=== PATIENT | male | born 1990 | race Two or more races ===

== ENCOUNTER 2017-09-07 17:34 | Inpatient (IN) | payer MEDICAID ==
[~2017-09-07] VITALS: Ht 167.6 cm; Wt 80.0 kg
[~2017-09-07 17:34] MED LIST: BUSP5TAB3 PO; CARB-52 PO; HYDR-3686 PO; KEP500T PO; ONDA4TAB6 PO
[2017-09-07] MEDS ORDERED: LORazepam 2 mg/ml vial IV ONE (18:00)
[2017-09-07] MEDS ORDERED: levetiracetam 250mg tablet PO ONE (18:05)
[2017-09-07 18:18] LABS: BASOPHILS % (AUTO) 0.3 % (0-1); EOSINOPHILS # (AUTO) 0.1 X10'3 (0-0.9); EOSINOPHILS % (AUTO) 1.4 % (0-6); HEMOGLOBIN 14.6 g/dl (14.0-17.9); LYMPHOCYTES # (AUTO) 0.9 X10'3 (1.1-4.8); MEAN CORPUSCULAR HEMOGLOBIN 32.2 PG (27.0-31.0); MEAN CORPUSCULAR VOLUME 94.8 FL (78-98); MEAN PLATELET VOLUME 6.4 FL (7.4-10.4); MONOCYTES # (AUTO) 0.5 X10'3 (0-0.9); MONOCYTES % (AUTO) 4.6 % (2-12); NEUTROPHILS # (AUTO) 8.5 X10'3 (1.8-7.7); NEUTROPHILS % (AUTO) 84.7 % (42-75); PLATELET COUNT 249 X10'3 (140-440); RED BLOOD COUNT 4.54 X10'6 (4.70-6.10); RED CELL DISTRIBUTION WIDTH 13.4 % (11.5-14.5)
[2017-09-07 18:28] LABS: PARTIAL THROMBOPLASTIN TIME 27 SECONDS (22-32); PROTHROMBIN TIME 9.9 SECONDS (9.0-12.0)
[2017-09-07 18:32] LABS: ALANINE AMINOTRANSFERASE 45 U/L (12-78); ALBUMIN 4.2 G/DL (3.4-5.0); ALBUMIN/GLOBULIN RATIO 1.4 (1.1-1.5); ALKALINE PHOSPHATASE 72 IU/L (46-116); ANION GAP 11 (8-16); ASPARTATE AMINO TRANSFERASE 22 U/L (10-37); BILIRUBIN,TOTAL 0.4 MG/DL (0.1-1.0); BLOOD UREA NITROGEN 13 MG/DL (7-18); BUN/CREATININE RATIO 13.4 (5.4-32.0); CALCIUM 9.2 MG/DL (8.5-10.1); CHLORIDE 104 MMOL/L (99-107); CREATININE 0.97 MG/DL (0.60-1.10); GLUCOSE 124 MG/DL (70-104); POTASSIUM 4.3 MMOL/L (3.5-5.1); SODIUM 139 MMOL/L (135-145); TOTAL CARBON DIOXIDE 24.2 MMOL/L (24-32); TOTAL PROTEIN 7.3 G/DL (6.4-8.2); eGFR > 90 ML/MIN
[2017-09-07 18:39] LABS: CREATINE KINASE 372 U/L (39-308); ETHANOL < 0.010 GM/DL (0.0-0.010); MAGNESIUM 1.6 MG/DL (1.5-2.4); MYOGLOBIN 179 ng/ml (16-96)
[2017-09-07 18:39] LABS: CLARITY,URINE Clear (Clear); COLOR,URINE Yellow (Yellow); GLUCOSE, URINE Negative (Neg); KETONES,URINE 15 mg/dl (Neg); LEUKOCYTE ESTERASE ,URINE Negative (Neg); NITRITES, URINE Negative (Neg); OCCULT BLOOD,URINE Negative (Neg); PH,URINE 5.5 (4.8-8.0); PROTEIN,URINE Trace mg/dl (Neg)
[2017-09-07 18:41] LABS: UA COLLECTION TYPE NON-SPECIFIED
[2017-09-07 18:44] LABS: BACTERIA,URINE 1+ /HPF (Neg); MUCUS STRANDS FEW /LPF (Neg); RBC,URINE NONE SEEN /HPF (0-2); SQUAMOUS EPITHELIAL CELL,UR NONE SEEN /LPF (FEW); WBC,URINE NONE SEEN /HPF (0-4)
[2017-09-07 18:46] LABS: URINE AMPHETAMINE SCREEN NEGATIVE (Neg); URINE BARBITUATE SCREEN NEGATIVE (Neg); URINE BENZODIAZEPINES SCREEN NEGATIVE (Neg); URINE CANNABINOID SCREEN POSITIVE (Neg); URINE COCAINE SCREEN NEGATIVE (Neg); URINE METHADONE SCREEN NEGATIVE (Neg); URINE OPIATE SCREEN NEGATIVE (Neg); URINE PHENCYCLIDINE SCREEN NEGATIVE (Neg)
[2017-09-07] MEDS ORDERED: ondansetron/PF 4mg/2ml inj IV PRN (20:40)
[2017-09-07] MEDS ORDERED: diphenhydrAMINE 25mg capsule PO PRN (20:40)
[2017-09-07] MEDS ORDERED: morphine sulfate 8 MG/ML SYRINGE IV PRN ×2 (20:40)
[2017-09-07] MEDS ORDERED: acetaminophen 325mg tablet PO PRN ×2 (20:40)
[2017-09-07] MEDS ORDERED: magnesium hydroxide 30ml (MOM) UD suspension PO PRN (20:40)
[2017-09-07] MEDS ORDERED: bisacodyl 10mg suppository rectal RC PRN (20:40)
[2017-09-07] MEDS ORDERED: metoclopramide 5 mg/ml inj IV PRN (20:40)
[2017-09-07] MEDS ORDERED: acetaminophen 650mg rectal suppository RC PRN (20:40)
[2017-09-07] MEDS ORDERED: mag hydrox/Alum hydrox/simeth 30ml oral suspension PO PRN (20:40)
[2017-09-07] MEDS ORDERED: HYDROcodone/acetaminophen 5mg/325mg tablet PO PRN (20:40)
[2017-09-07] MEDS ORDERED: diphenhydrAMINE 50 mg/ml inj IV PRN (20:40)
[2017-09-07] MEDS ORDERED: HYDROcodone/acetaminophen 10/325mg tab PO PRN (20:40)
[2017-09-07] MEDS ORDERED: temazepam 15mg capsule PO PRN (21:00)
[2017-09-07 21:18] LABS: CARBAMAZEPINE (TEGRETOL) 1.9 UG/ML (4.0-12.0); PHOSPHORUS 3.1 MG/DL (2.3-4.5)
[2017-09-07] MEDS: busPIRone 5mg tablet PO SCH (22:32)
[2017-09-07] MEDS: normal saline 1000ml 1,000 ML IV SCH (22:33)
[2017-09-07] MEDS: carBAMazepine Ext. Release 200 MG TAB.ER.12H PO SCH (22:33)
[2017-09-07 23:43] VITALS: BP 130/65
[2017-09-08 05:55] LABS: BASOPHILS % (AUTO) 0.3 % (0-1); EOSINOPHILS % (AUTO) 0 % (0-6); HEMATOCRIT 40.1 % (42.0-52.0); HEMOGLOBIN 13.8 g/dl (14.0-17.9); LYMPHOCYTES # (AUTO) 1.7 X10'3 (1.1-4.8); LYMPHOCYTES % (AUTO) 18.8 % (21-51); MEAN CORPUSCULAR HEMOGLOBIN 32.3 PG (27.0-31.0); MEAN CORPUSCULAR HGB CONC 34.3 % (33.0-36.5); MEAN PLATELET VOLUME 6.5 FL (7.4-10.4); MONOCYTES # (AUTO) 0.8 X10'3 (0-0.9); MONOCYTES % (AUTO) 8.6 % (2-12); NEUTROPHILS # (AUTO) 6.4 X10'3 (1.8-7.7); NEUTROPHILS % (AUTO) 72.3 % (42-75); PLATELET COUNT 213 X10'3 (140-440); RED BLOOD COUNT 4.27 X10'6 (4.70-6.10); RED CELL DISTRIBUTION WIDTH 13.3 % (11.5-14.5); WHITE BLOOD COUNT 8.8 X10'3 (4.5-11.0)
[2017-09-08 06:45] LABS: ALANINE AMINOTRANSFERASE 43 U/L (12-78); ALBUMIN 3.7 G/DL (3.4-5.0); ALBUMIN/GLOBULIN RATIO 1.3 (1.1-1.5); ALKALINE PHOSPHATASE 66 IU/L (46-116); ANION GAP 11 (8-16); ASPARTATE AMINO TRANSFERASE 23 U/L (10-37); BILIRUBIN,TOTAL 0.6 MG/DL (0.1-1.0); BLOOD UREA NITROGEN 11 MG/DL (7-18); BUN/CREATININE RATIO 12.6 (5.4-32.0); CALCIUM 8.9 MG/DL (8.5-10.1); CHLORIDE 108 MMOL/L (99-107); CREATININE 0.87 MG/DL (0.60-1.10); GLUCOSE 93 MG/DL (70-104); POTASSIUM 3.7 MMOL/L (3.5-5.1); SODIUM 143 MMOL/L (135-145); TOTAL CARBON DIOXIDE 23.9 MMOL/L (24-32); TOTAL PROTEIN 6.6 G/DL (6.4-8.2); eGFR > 90 ML/MIN
[2017-09-08 07:12] VITALS: BP 116/59
[2017-09-08] MEDS: LORazepam 2 mg/ml vial IV SCH ×3 (08:00→15:24)
[2017-09-08] MEDS ORDERED: levetiracetam 250mg tablet PO SCH (08:00)
[2017-09-08] MEDS ORDERED: heparin, porcine 5000 units/ml vial SQ SCH (08:00)
[2017-09-08] MEDS ORDERED: pantoprazole 40 MG vial IV SCH (08:00)
[2017-09-08] MEDS ORDERED: docusate sod 100mg capsule PO SCH (08:00)
[2017-09-08] MEDS: busPIRone 5mg tablet PO SCH ×2 (08:09→13:05)
[2017-09-08] MEDS: carBAMazepine Ext. Release 200 MG TAB.ER.12H PO SCH (08:40)
[2017-09-08] MEDS: normal saline 1000ml 1,000 ML IV SCH ×2 (09:04→16:40)
[2017-09-08 11:59] VITALS: BP 116/53
== END 2017-09-08 17:50 | disposition home or self-care (01) | DRG 53 ==
LOC: ER 17:34 → ED HOLD 20:40 → EDBEDREQ 21:10 → MED 3N 22:00
PROVIDERS: ADMIT Family Medicine; ATTEND Internal Medicine
DX: G40.401 Other generalized epilepsy and epileptic syndromes, not intractable, with status epilepticus (principal); F31.9 Bipolar disorder, unspecified; F12.90 Cannabis use, unspecified, uncomplicated; G89.29 Other chronic pain; M54.9 Dorsalgia, unspecified; F14.90 Cocaine use, unspecified, uncomplicated; F15.90 Other stimulant use, unspecified, uncomplicated; Z91.19 Patient's noncompliance with other medical treatment and regimen; Z88.8 Allergy status to other drugs, medicaments and biological substances; Z79.899 Other long term (current) drug therapy; Z82.5 Family history of asthma and other chronic lower respiratory diseases; Z81.8 Family history of other mental and behavioral disorders
CPT/HCPCS: 36415; 70450; 80053; 80156; 80305; 80320; 81001; 82550; 83735; 83874; 83880; 84100; 85025; 85610; 85730; 87070; 96372; 96374; 96375; 99285; A6257; C9113; J1644; J2060; J2405; J7030

== ENCOUNTER 2017-09-23 11:46 | Emergency (ER) | payer MEDICAID ==
[~2017-09-23] VITALS: Ht 180.3 cm; Wt 86.0 kg
[2017-09-23 14:39] VITALS: BP 137/61
== END 2017-09-23 14:41 | disposition home or self-care (01) ==
LOC: ER 11:46
DX: R56.9 Unspecified convulsions (principal); J44.9 Chronic obstructive pulmonary disease, unspecified; G89.29 Other chronic pain; F12.10 Cannabis abuse, uncomplicated; F15.10 Other stimulant abuse, uncomplicated; F14.10 Cocaine abuse, uncomplicated; Z88.8 Allergy status to other drugs, medicaments and biological substances
CPT/HCPCS: 99284

== ENCOUNTER 2017-09-23 15:02 | Emergency (ER) | payer MEDICAID ==
[~2017-09-23] VITALS: Ht 175.3 cm; Wt 84.1 kg
[2017-09-23] MEDS ORDERED: levetiracetam inj 1,000 MG in normal saline 100ml IV soln 90 ML IV ONE (15:20)
[2017-09-23] MEDS ORDERED: normal saline 1000ml 1,000 ML IV ONE (15:35)
[2017-09-23 15:38] LABS: BASOPHILS % (AUTO) 0.3 % (0-1); EOSINOPHILS # (AUTO) 0.2 X10'3 (0-0.9); EOSINOPHILS % (AUTO) 1.5 % (0-6); HEMOGLOBIN 15.6 g/dl (14.0-17.9); LYMPHOCYTES % (AUTO) 20.8 % (21-51); MEAN CORPUSCULAR HEMOGLOBIN 31.8 PG (27.0-31.0); MEAN CORPUSCULAR HGB CONC 33.1 % (33.0-36.5); MEAN PLATELET VOLUME 6.4 FL (7.4-10.4); MONOCYTES % (AUTO) 9.8 % (2-12); NEUTROPHILS # (AUTO) 6.7 X10'3 (1.8-7.7); NEUTROPHILS % (AUTO) 67.6 % (42-75); PLATELET COUNT 292 X10'3 (140-440); RED CELL DISTRIBUTION WIDTH 12.9 % (11.5-14.5); WHITE BLOOD COUNT 9.8 X10'3 (4.5-11.0)
[2017-09-23] MEDS ORDERED: ondansetron/PF 4mg/2ml inj IV ONE (15:45)
[2017-09-23 16:07] LABS: ALANINE AMINOTRANSFERASE 47 U/L (12-78); ALBUMIN 4.4 G/DL (3.4-5.0); ALBUMIN/GLOBULIN RATIO 1.3 (1.1-1.5); ALKALINE PHOSPHATASE 95 IU/L (46-116); ANION GAP 19 (8-16); ASPARTATE AMINO TRANSFERASE 20 U/L (10-37); BILIRUBIN,TOTAL 0.4 MG/DL (0.1-1.0); BLOOD UREA NITROGEN 13 MG/DL (7-18); CALCIUM 9.6 MG/DL (8.5-10.1); CHLORIDE 103 MMOL/L (99-107); CREATINE KINASE 133 U/L (39-308); GLUCOSE 150 MG/DL (70-104); POTASSIUM 3.1 MMOL/L (3.5-5.1); SODIUM 140 MMOL/L (135-145); TOTAL CARBON DIOXIDE 18.1 MMOL/L (24-32); TOTAL PROTEIN 7.9 G/DL (6.4-8.2); eGFR 65 ML/MIN
[2017-09-23] MEDS ORDERED: potassium Cl 20 mEq SR tablet PO STA (16:22)
[2017-09-23] MEDS ORDERED: LORazepam 2 mg/ml vial IV ONE (16:25)
[2017-09-23 16:43] LABS: CLARITY,URINE CLEAR (Clear); COLOR,URINE YELLOW (Yellow); GLUCOSE, URINE NEGATIVE (Neg); KETONES,URINE TRACE mg/dl (Neg); LEUKOCYTE ESTERASE ,URINE NEGATIVE (Neg); NITRITES, URINE NEGATIVE (Neg); OCCULT BLOOD,URINE NEGATIVE (Neg); PH,URINE 8.5 (4.8-8.0); PROTEIN,URINE 100 mg/dl (Neg); UROBILINOGEN,URINE 0.2 E.U/dL (0.2-1.0)
[2017-09-23 16:48] LABS: UA COLLECTION TYPE URINAL
[2017-09-23 17:01] LABS: AMORPHOUS PHOSPHATES 1+; BACTERIA,URINE 2+ /HPF (Neg); RBC,URINE NONE SEEN /HPF (0-2); SQUAMOUS EPITHELIAL CELL,UR FEW /LPF (FEW); WBC,URINE NONE SEEN /HPF (0-4)
[2017-09-23] MEDS ORDERED: acetaminophen 325mg tablet PO ONE (17:05)
[2017-09-23] MEDS ORDERED: ketorolac trometh. 30mg/ml inj. IV ONE (17:05)
[2017-09-23 18:51] VITALS: BP 111/55
== END 2017-09-23 18:54 | disposition home or self-care (01) ==
LOC: ER 15:04
DX: G40.909 Epilepsy, unspecified, not intractable, without status epilepticus (principal); G89.29 Other chronic pain; F31.9 Bipolar disorder, unspecified; F12.10 Cannabis abuse, uncomplicated; F15.10 Other stimulant abuse, uncomplicated; F14.10 Cocaine abuse, uncomplicated; Z88.8 Allergy status to other drugs, medicaments and biological substances; Z79.899 Other long term (current) drug therapy
CPT/HCPCS: 36415; 80053; 81001; 82550; 85025; 96365; 96375; 99284; J1885; J1953; J2060; J2405; J7030

== ENCOUNTER 2017-12-20 16:57 | Emergency (ER) | payer MEDICAID ==
[~2017-12-20] VITALS: Ht 182.9 cm; Wt 81.8 kg
[~2017-12-20 16:57] MED LIST changes: +CARB200T2 PO
[2017-12-20] MEDS ORDERED: LORazepam 2 mg/ml vial IV ONE (17:00)
[2017-12-20] MEDS ORDERED: magnesium 2GM in 50ml NS 50 ML IV ONE (17:00)
[2017-12-20] MEDS ORDERED: normal saline 1000ML IV soln IVB ONE (17:00)
[2017-12-20] MEDS ORDERED: ondansetron/PF 4mg/2ml inj IV ONE ×2 (17:10→17:50)
[2017-12-20 17:23] LABS: BASOPHILS % (AUTO) 0.2 % (0-1); EOSINOPHILS % (AUTO) 0.3 % (0-6); HEMOGLOBIN 15.2 g/dl (14.0-17.9); LYMPHOCYTES # (AUTO) 1.6 X10'3 (1.1-4.8); LYMPHOCYTES % (AUTO) 12.3 % (21-51); MEAN CORPUSCULAR HEMOGLOBIN 31.7 PG (27.0-31.0); MEAN CORPUSCULAR HGB CONC 33.8 % (33.0-36.5); MEAN CORPUSCULAR VOLUME 93.8 FL (78-98); MEAN PLATELET VOLUME 6.6 FL (7.4-10.4); MONOCYTES # (AUTO) 0.7 X10'3 (0-0.9); MONOCYTES % (AUTO) 5.4 % (2-12); NEUTROPHILS # (AUTO) 10.7 X10'3 (1.8-7.7); NEUTROPHILS % (AUTO) 81.8 % (42-75); PLATELET COUNT 291 X10'3 (140-440)
[2017-12-20 17:42] LABS: ALANINE AMINOTRANSFERASE 65 U/L (12-78); ALBUMIN 4.1 G/DL (3.4-5.0); ALBUMIN/GLOBULIN RATIO 1.2 (1.1-1.5); ALKALINE PHOSPHATASE 96 IU/L (46-116); ANION GAP 16 (8-16); ASPARTATE AMINO TRANSFERASE 26 U/L (10-37); BILIRUBIN,TOTAL 0.4 MG/DL (0.1-1.0); BLOOD UREA NITROGEN 16 MG/DL (7-18); BUN/CREATININE RATIO 15.2 (5.4-32.0); CALCIUM 9.5 MG/DL (8.5-10.1); CHLORIDE 104 MMOL/L (99-107); CREATINE KINASE 118 U/L (39-308); CREATININE 1.05 MG/DL (0.60-1.10); GLUCOSE 138 MG/DL (70-104); SODIUM 141 MMOL/L (135-145); TOTAL CARBON DIOXIDE 21.2 MMOL/L (24-32); TOTAL PROTEIN 7.6 G/DL (6.4-8.2); eGFR 84 ML/MIN
[2017-12-20 18:21] LABS: CARBAMAZEPINE (TEGRETOL) 5.4 UG/ML (4.0-12.0)
[2017-12-20 19:11] LABS: CLARITY,URINE Clear (Clear); COLOR,URINE Yellow (Yellow); GLUCOSE, URINE Negative (Neg); KETONES,URINE Negative (Neg); LEUKOCYTE ESTERASE ,URINE Negative (Neg); NITRITES, URINE Negative (Neg); OCCULT BLOOD,URINE Negative (Neg); PH,URINE 5.5 (4.8-8.0); PROTEIN,URINE Negative (Neg); UROBILINOGEN,URINE 0.2 E.U/dL (0.2-1.0)
[2017-12-20] MEDS ORDERED: pantoprazole IV 80 MG in normal saline 100ml IV soln 100 ML IV ONE (19:15)
[2017-12-20] MEDS ORDERED: proCHLORperazine 10 MG/2 ml inj IV ONE (19:15)
[2017-12-20 19:19] LABS: URINE AMPHETAMINE SCREEN NEGATIVE (Neg); URINE BARBITUATE SCREEN NEGATIVE (Neg); URINE BENZODIAZEPINES SCREEN POSITIVE (Neg); URINE CANNABINOID SCREEN POSITIVE (Neg); URINE COCAINE SCREEN NEGATIVE (Neg); URINE METHADONE SCREEN NEGATIVE (Neg); URINE OPIATE SCREEN NEGATIVE (Neg); URINE PHENCYCLIDINE SCREEN NEGATIVE (Neg)
[2017-12-20 19:23] LABS: UA COLLECTION TYPE CLN CATCH MIDSTREAM
[2017-12-20 19:44] LABS: HEMATOCRIT 44.2 % (42.0-52.0); HEMOGLOBIN 14.8 g/dl (14.0-17.9); MEAN CORPUSCULAR HEMOGLOBIN 31.8 PG (27.0-31.0); MEAN CORPUSCULAR HGB CONC 33.5 % (33.0-36.5); MEAN PLATELET VOLUME 6.6 FL (7.4-10.4); PLATELET COUNT 256 X10'3 (140-440); RED BLOOD COUNT 4.66 X10'6 (4.70-6.10); RED CELL DISTRIBUTION WIDTH 14.1 % (11.5-14.5); WHITE BLOOD COUNT 14.2 X10'3 (4.5-11.0)
[2017-12-20 20:00] VITALS: BP 109/66
[2017-12-21] MEDS ORDERED: BUSP10TA3 PO (05:48)
[2017-12-21] MEDS ORDERED: DOCU-267 PO (05:48)
[2017-12-21] MEDS ORDERED: PERA2TAB PO (05:48)
[2017-12-21] MEDS ORDERED: MIRT15TA8 PO (05:49)
[2017-12-21] MEDS ORDERED: DIAZEPAM RC (05:49)
[2017-12-21] MEDS ORDERED: CARB-101 PO (05:49)
[2017-12-21] MEDS ORDERED: LAMO200T PO (05:49)
== END 2017-12-20 20:03 | disposition home or self-care (01) ==
LOC: ER 16:58
DX: G40.909 Epilepsy, unspecified, not intractable, without status epilepticus (principal); G89.29 Other chronic pain; F12.10 Cannabis abuse, uncomplicated; F15.10 Other stimulant abuse, uncomplicated; F14.10 Cocaine abuse, uncomplicated; Z88.8 Allergy status to other drugs, medicaments and biological substances; Z79.899 Other long term (current) drug therapy
CPT/HCPCS: 36415; 80053; 80156; 80305; 81003; 82542; 82550; 82948; 85025; 85027; 96365; 96375; 96376; 99284; C9113; J0780; J2060; J2405; J3475; J7030

== ENCOUNTER 2017-12-21 02:23 | Inpatient (IN) | payer MEDICAID ==
[~2017-12-21] VITALS: Ht 182.9 cm; Wt 68.0 kg
[2017-12-21] MEDS ORDERED: LORazepam 2 mg/ml vial IV ONE ×2 (02:40→07:20)
[2017-12-21] MEDS ORDERED: levetiracetam 100mg/ml inj IV ONE (03:26)
[2017-12-21] MEDS ORDERED: normal saline 1000ML IV soln IVB ONE (03:30)
[2017-12-21] MEDS ORDERED: CefTRIAXone/D5W-Rocephin 1gm 50 ML IV ONE (03:30)
[2017-12-21 03:54] LABS: BASOPHILS % (AUTO) 0.2 % (0-1); EOSINOPHILS % (AUTO) 0 % (0-6); HEMATOCRIT 39.6 % (42.0-52.0); HEMOGLOBIN 13.7 g/dl (14.0-17.9); LYMPHOCYTES # (AUTO) 0.9 X10'3 (1.1-4.8); LYMPHOCYTES % (AUTO) 8.4 % (21-51); MEAN CORPUSCULAR HEMOGLOBIN 32.4 PG (27.0-31.0); MEAN CORPUSCULAR HGB CONC 34.7 % (33.0-36.5); MEAN CORPUSCULAR VOLUME 93.4 FL (78-98); MEAN PLATELET VOLUME 6.4 FL (7.4-10.4); MONOCYTES # (AUTO) 0.5 X10'3 (0-0.9); MONOCYTES % (AUTO) 4.8 % (2-12); NEUTROPHILS # (AUTO) 8.9 X10'3 (1.8-7.7); NEUTROPHILS % (AUTO) 86.6 % (42-75); PLATELET COUNT 248 X10'3 (140-440); RED BLOOD COUNT 4.24 X10'6 (4.70-6.10); RED CELL DISTRIBUTION WIDTH 14.1 % (11.5-14.5); WHITE BLOOD COUNT 10.3 X10'3 (4.5-11.0)
[2017-12-21] MEDS ORDERED: acetaminophen 325mg tablet PO ONE (04:00)
[2017-12-21 04:06] LABS: PARTIAL THROMBOPLASTIN TIME 28 SECONDS (22-32); PROTHROMBIN TIME 10.1 SECONDS (9.0-12.0)
[2017-12-21 04:08] LABS: ALBUMIN 3.7 G/DL (3.4-5.0); ANION GAP 12 (8-16); BILIRUBIN,TOTAL 0.5 MG/DL (0.1-1.0); BLOOD UREA NITROGEN 15 MG/DL (7-18); BUN/CREATININE RATIO 17.9 (5.4-32.0); CALCIUM 8.8 MG/DL (8.5-10.1); CHLORIDE 105 MMOL/L (99-107); CREATINE KINASE 142 U/L (39-308); CREATININE 0.84 MG/DL (0.60-1.10); GLUCOSE 121 MG/DL (70-104); POTASSIUM 4.2 MMOL/L (3.5-5.1); SODIUM 140 MMOL/L (135-145); TOTAL CARBON DIOXIDE 23.5 MMOL/L (24-32); TOTAL PROTEIN 7.1 G/DL (6.4-8.2); eGFR > 90 ML/MIN
[2017-12-21 04:09] LABS: ALANINE AMINOTRANSFERASE 67 U/L (12-78); ALBUMIN/GLOBULIN RATIO 1.1 (1.1-1.5); ALKALINE PHOSPHATASE 87 IU/L (46-116); ASPARTATE AMINO TRANSFERASE 26 U/L (10-37); ETHANOL < 0.010 GM/DL (0.0-0.010)
[2017-12-21 04:10] LABS: ACETAMINOPHEN < 2.0 UG/ML (10-30)
[2017-12-21 04:11] LABS: LACTIC SEPSIS 1.1 MMOL/L (0.4-2.0)
[2017-12-21 04:19] LABS: CLARITY,URINE Cloudy (Clear); COLOR,URINE Yellow (Yellow); GLUCOSE, URINE Negative (Neg); KETONES,URINE 15 mg/dl (Neg); LEUKOCYTE ESTERASE ,URINE Negative (Neg); NITRITES, URINE Negative (Neg); OCCULT BLOOD,URINE Negative (Neg); PROTEIN,URINE Negative (Neg); UA COLLECTION TYPE STRAIGHT CATH
[2017-12-21 04:25] LABS: URINE AMPHETAMINE SCREEN NEGATIVE (Neg); URINE BARBITUATE SCREEN NEGATIVE (Neg); URINE BENZODIAZEPINES SCREEN POSITIVE (Neg); URINE CANNABINOID SCREEN POSITIVE (Neg); URINE COCAINE SCREEN NEGATIVE (Neg); URINE METHADONE SCREEN NEGATIVE (Neg); URINE OPIATE SCREEN NEGATIVE (Neg); URINE PHENCYCLIDINE SCREEN NEGATIVE (Neg)
[2017-12-21] MEDS: levetiracetam inj 1,500 MG in normal saline 100ml IV soln 85 ML IV SCH ×3 (04:28→20:25)
[2017-12-21 04:31] LABS: RBC,URINE NONE SEEN /HPF (0-2); WBC,URINE 0-4 /HPF (0-4)
[2017-12-21 04:32] LABS: AMORPHOUS URATES 1+; BACTERIA,URINE NONE SEEN /HPF (Neg); MUCUS STRANDS MANY /LPF (Neg); SQUAMOUS EPITHELIAL CELL,UR FEW /LPF (FEW)
[2017-12-21] MEDS ORDERED: propofol 10mg/ml 20ml vial IV ONE (04:45)
[2017-12-21] MEDS ORDERED: DOCU-267 PO (05:48)
[2017-12-21] MEDS ORDERED: BUSP10TA3 PO (05:48)
[2017-12-21] MEDS ORDERED: PERA2TAB PO (05:48)
[2017-12-21] MEDS ORDERED: LAMO200T PO (05:49)
[2017-12-21] MEDS ORDERED: MIRT15TA8 PO (05:49)
[2017-12-21] MEDS ORDERED: DIAZEPAM RC (05:49)
[2017-12-21] MEDS ORDERED: CARB-101 PO (05:49)
[2017-12-21 06:21] LABS: GLUCOSE,CSF 75 MG/DL (40-75); TOTAL PROTEIN,CSF 25 MG/DL (15-45)
[2017-12-21 06:32] LABS: APPEARANCE,CSF CLEAR; CSF RBC 0 /CU MM (0); CSF SUPERNATANT COLOR COLORLESS; CSF VOLUME 5.5 ML; TUBE# COUNTED 4
[2017-12-21 06:37] LABS: APPEARANCE,CSF CLEAR; CSF RBC 0 /CU MM (0); CSF SUPERNATANT COLOR COLORLESS; CSF VOLUME 5.5 ML; TUBE# COUNTED 1
[2017-12-21 06:41] LABS: CSF WBC CT 3 /CU MM (0-5)
[2017-12-21 06:42] LABS: CSF WBC CT 3 /CU MM (0-5)
[2017-12-21] MEDS ORDERED: normal saline 1000ml 1,000 ML IVB ONE (07:16)
[2017-12-21] MEDS ORDERED: ondansetron/PF 4mg/2ml inj IV PRN (07:20)
[2017-12-21] MEDS ORDERED: mag hydrox/Alum hydrox/simeth 30ml oral suspension PO PRN (07:20)
[2017-12-21] MEDS ORDERED: HYDROcodone/acetaminophen 10/325mg tab PO PRN (07:20)
[2017-12-21] MEDS ORDERED: diphenhydrAMINE 50 mg/ml inj IV PRN (07:20)
[2017-12-21] MEDS ORDERED: morphine 4 MG/ML inj SYRINge IV PRN ×2 (07:20)
[2017-12-21] MEDS ORDERED: magnesium hydroxide 30ml (MOM) UD suspension PO PRN (07:20)
[2017-12-21] MEDS ORDERED: HYDROcodone/acetaminophen 5mg/325mg tablet PO PRN (07:20)
[2017-12-21] MEDS ORDERED: HYDROmorphone inj. 0.5 MG/0.5 ML DISP.SYRIN IV PRN ×2 (07:20)
[2017-12-21] MEDS ORDERED: bisacodyl 10mg suppository rectal RC PRN (07:20)
[2017-12-21] MEDS ORDERED: acetaminophen 650mg rectal suppository RC PRN (07:20)
[2017-12-21] MEDS ORDERED: acetaminophen 325mg tablet PO PRN ×2 (07:20)
[2017-12-21] MEDS ORDERED: metoclopramide 5 mg/ml inj IV PRN (07:20)
[2017-12-21] MEDS ORDERED: diphenhydrAMINE 25mg capsule PO PRN (07:20)
[2017-12-21] MEDS: normal saline 1000ml 1,000 ML IV SCH ×2 (07:48→17:29)
[2017-12-21 07:49] LABS: C-REACTIVE PROTEIN 1.7 MG/DL (0.0-0.5); CARBAMAZEPINE (TEGRETOL) 2.8 UG/ML (4.0-12.0); MAGNESIUM 1.8 MG/DL (1.5-2.4); PHOSPHORUS 3.4 MG/DL (2.3-4.5)
[2017-12-21] MEDS ORDERED: DIAZEPAM RC PRN (07:55)
[2017-12-21] MEDS ORDERED: docusate sod 100mg capsule PO PRN (07:55)
[2017-12-21] MEDS ORDERED: carBAMazepine 100mg chewable tablet PO ONE (08:40)
[2017-12-21] MEDS: docusate sod 100mg capsule PO SCH ×2 (09:01→20:00)
[2017-12-21] MEDS: busPIRone 5mg tablet PO SCH ×3 (09:02→20:26)
[2017-12-21] MEDS: carBAMazepine Ext. Release 200 MG TAB.ER.12H PO SCH ×2 (09:05→20:25)
[2017-12-21] MEDS: vancomycin/NS 1 GM ADD-VANTAGE 250 ML IV SCH ×2 (09:47→17:30)
[2017-12-21] MEDS ORDERED: vancomycin inj 1,250 MG in normal saline 250ml IV soln 250 ML IV ONE (10:00)
[2017-12-21 14:31] VITALS: BP 137/63
[2017-12-21] MEDS ORDERED: LORazepam 2 mg/ml vial IV PRN (18:25)
[2017-12-21 18:30] VITALS: BP 124/70
[2017-12-21] MEDS: CefTRIAXone 2gm/D5W 50ml 50 ML IV SCH (19:24)
[2017-12-21] MEDS: lactobacillus rhamnosus 10,000 MMU CELLS/CAPSULE PO SCH (20:26)
[2017-12-21] MEDS: lamoTRIgine 100mg tablet PO SCH (20:26)
[2017-12-21] MEDS ORDERED: temazepam 15mg capsule PO PRN (21:00)
[2017-12-21] MEDS ORDERED: mirtazapine 15mg tablet PO SCH (21:00)
[2017-12-21] MEDS ORDERED: PERAMPANEL 2 MG PO SCH (21:00)
[2017-12-21 22:00] VITALS: BP 97/53
[2017-12-22] MEDS: vancomycin/NS 1 GM ADD-VANTAGE 250 ML IV SCH (01:23)
[2017-12-22 06:00] VITALS: BP 114/74
[2017-12-22 06:26] LABS: ALANINE AMINOTRANSFERASE 55 U/L (12-78); ALBUMIN 3.4 G/DL (3.4-5.0); ALBUMIN/GLOBULIN RATIO 1.1 (1.1-1.5); ALKALINE PHOSPHATASE 73 IU/L (46-116); ANION GAP 10 (8-16); ASPARTATE AMINO TRANSFERASE 14 U/L (10-37); BILIRUBIN,TOTAL 0.5 MG/DL (0.1-1.0); BLOOD UREA NITROGEN 10 MG/DL (7-18); BUN/CREATININE RATIO 11.8 (5.4-32.0); CALCIUM 8.5 MG/DL (8.5-10.1); CHLORIDE 112 MMOL/L (99-107); CREATININE 0.85 MG/DL (0.60-1.10); GLUCOSE 89 MG/DL (70-104); POTASSIUM 3.5 MMOL/L (3.5-5.1); SODIUM 148 MMOL/L (135-145); TOTAL CARBON DIOXIDE 26.3 MMOL/L (24-32); TOTAL PROTEIN 6.4 G/DL (6.4-8.2); eGFR > 90 ML/MIN
[2017-12-22] MEDS: normal saline 1000ml 1,000 ML IV SCH (06:30)
[2017-12-22 06:37] LABS: BASOPHILS % (AUTO) 0.4 % (0-1); EOSINOPHILS # (AUTO) 0.1 X10'3 (0-0.9); EOSINOPHILS % (AUTO) 1.1 % (0-6); HEMATOCRIT 37.3 % (42.0-52.0); HEMOGLOBIN 13.2 g/dl (14.0-17.9); LYMPHOCYTES # (AUTO) 1.8 X10'3 (1.1-4.8); LYMPHOCYTES % (AUTO) 35.8 % (21-51); MEAN CORPUSCULAR HEMOGLOBIN 32.9 PG (27.0-31.0); MEAN CORPUSCULAR HGB CONC 35.4 % (33.0-36.5); MEAN CORPUSCULAR VOLUME 92.9 FL (78-98); MEAN PLATELET VOLUME 7.1 FL (7.4-10.4); MONOCYTES # (AUTO) 0.6 X10'3 (0-0.9); MONOCYTES % (AUTO) 12.3 % (2-12); NEUTROPHILS # (AUTO) 2.6 X10'3 (1.8-7.7); NEUTROPHILS % (AUTO) 50.4 % (42-75); PLATELET COUNT 190 X10'3 (140-440); RED BLOOD COUNT 4.02 X10'6 (4.70-6.10); RED CELL DISTRIBUTION WIDTH 13.2 % (11.5-14.5); WHITE BLOOD COUNT 5.1 X10'3 (4.5-11.0)
[2017-12-22] MEDS ORDERED: pantoprazole 40mg Tablet.DR PO SCH (07:30)
[2017-12-22] MEDS ORDERED: MESSAGE TO NURSING IV SCH (08:30)
[2017-12-22 10:00] VITALS: BP 131/54
[2017-12-22] MEDS ORDERED: vancomycin inj 1,250 MG in normal saline 250ml IV soln 250 ML IV SCH (10:00)
[2017-12-22] MEDS: docusate sod 100mg capsule PO SCH (10:15)
[2017-12-22] MEDS: busPIRone 5mg tablet PO SCH (10:19)
[2017-12-22] MEDS: lactobacillus rhamnosus 10,000 MMU CELLS/CAPSULE PO SCH (10:20)
[2017-12-22] MEDS: lamoTRIgine 100mg tablet PO SCH (10:21)
[2017-12-22] MEDS: carBAMazepine Ext. Release 200 MG TAB.ER.12H PO SCH (10:22)
[2017-12-22] MEDS: CefTRIAXone 2gm/D5W 50ml 50 ML IV SCH (10:22)
[2017-12-22] MEDS: levetiracetam inj 1,500 MG in normal saline 100ml IV soln 85 ML IV SCH (10:24)
[2017-12-22] MEDS ORDERED: levetiracetam 250mg tablet PO SCH (10:35)
[2017-12-22] MEDS ORDERED: KEP500T PO (11:52)
[2017-12-23] MEDS ORDERED: VANCOMYCIN LEVEL IV ONE (08:30)
== END 2017-12-22 13:15 | disposition home or self-care (01) | DRG 53 ==
LOC: ER 02:24 → ED HOLD 07:20 → EDBEDREQSVC 13:43 → EDBEDREQ 13:43 → ORTHO 4S 14:30
PROVIDERS: ADMIT Family Medicine; ATTEND Family Medicine
PROC: 009U3ZX Drainage of Spinal Canal, Percutaneous Approach, Diagnostic (ICD-10-PCS; principal; 2017-12-21)
DX: G40.901 Epilepsy, unspecified, not intractable, with status epilepticus (principal); F14.10 Cocaine abuse, uncomplicated; E86.0 Dehydration; G89.29 Other chronic pain; F12.90 Cannabis use, unspecified, uncomplicated; M54.9 Dorsalgia, unspecified; F15.90 Other stimulant use, unspecified, uncomplicated; F31.9 Bipolar disorder, unspecified; Z81.8 Family history of other mental and behavioral disorders; Z91.19 Patient's noncompliance with other medical treatment and regimen; Z88.8 Allergy status to other drugs, medicaments and biological substances; Z91.048 Other nonmedicinal substance allergy status; Z79.899 Other long term (current) drug therapy
CPT/HCPCS: 36415; 70450; 71045; 80053; 80156; 80164; 80202; 80305; 80320; 80329; 81001; 82140; 82550; 82945; 83605; 83690; 83735; 84100; 84157; 85025; 85610; 85651; 85730; 86140; 86617; 86788; 86789; 87015; 87040; 87070; 87077; 87102; 87186; 87502; 87503; 89051; A4620; J0696; J1953; J2060; J2704; J3370; J7030

== ENCOUNTER 2018-01-21 18:06 | Inpatient (IN) | payer MEDICAID ==
[~2018-01-21] VITALS: Ht 170.2 cm; Wt 77.3 kg
[~2018-01-21 18:06] MED LIST changes: +BUSP10TA3 PO; -BUSP5TAB3 PO; +CARB-101 PO; -CARB-52 PO; -CARB200T2 PO; +DIAZEPAM RC; +DOCU-267 PO; -HYDR-3686 PO; +LAMO200T PO; +MIRT15TA8 PO; -ONDA4TAB6 PO; +PERA2TAB PO
[2018-01-21] MEDS ORDERED: LORazepam 2 mg/ml vial IV ONE (18:25)
[2018-01-21] MEDS ORDERED: normal saline 1000ml 1,000 ML IV ONE (18:25)
[2018-01-21] MEDS ORDERED: ondansetron/PF 4mg/2ml inj IV ONE ×2 (18:25→18:30)
[2018-01-21] MEDS ORDERED: potassium Cl 20 mEq SR tablet PO ONE (21:45)
[2018-01-21] MEDS ORDERED: acetaminophen 325mg tablet PO PRN ×2 (21:55)
[2018-01-21] MEDS ORDERED: magnesium hydroxide 30ml (MOM) UD suspension PO PRN ×2 (21:55)
[2018-01-21] MEDS ORDERED: ondansetron/PF 4mg/2ml inj IV PRN ×2 (21:55)
[2018-01-21] MEDS ORDERED: mag hydrox/Alum hydrox/simeth 30ml oral suspension PO PRN ×2 (21:55)
[2018-01-22 01:48] LABS: URINE AMPHETAMINE SCREEN NEGATIVE (Neg); URINE BARBITUATE SCREEN NEGATIVE (Neg); URINE BENZODIAZEPINES SCREEN NEGATIVE (Neg); URINE CANNABINOID SCREEN POSITIVE (Neg); URINE COCAINE SCREEN NEGATIVE (Neg); URINE METHADONE SCREEN NEGATIVE (Neg); URINE OPIATE SCREEN NEGATIVE (Neg); URINE PHENCYCLIDINE SCREEN NEGATIVE (Neg)
[2018-01-22 07:28] LABS: BASOPHILS % (AUTO) 0.1 % (0-1); EOSINOPHILS # (AUTO) 0.1 X10'3 (0-0.9); HEMOGLOBIN 14.1 g/dl (14.0-17.9); LYMPHOCYTES # (AUTO) 0.9 X10'3 (1.1-4.8); LYMPHOCYTES % (AUTO) 10.1 % (21-51); MEAN CORPUSCULAR HGB CONC 34.4 % (33.0-36.5); MEAN PLATELET VOLUME 6.5 FL (7.4-10.4); MONOCYTES # (AUTO) 0.7 X10'3 (0-0.9); MONOCYTES % (AUTO) 8.2 % (2-12); NEUTROPHILS # (AUTO) 7.2 X10'3 (1.8-7.7); NEUTROPHILS % (AUTO) 80.6 % (42-75); PLATELET COUNT 193 X10'3 (140-440); RED BLOOD COUNT 4.41 X10'6 (4.70-6.10); RED CELL DISTRIBUTION WIDTH 13.6 % (11.5-14.5); WHITE BLOOD COUNT 8.9 X10'3 (4.5-11.0)
[2018-01-22 07:39] LABS: ALBUMIN 3.6 G/DL (3.4-5.0); ANION GAP 11 (8-16); BLOOD UREA NITROGEN 13 MG/DL (7-18); BUN/CREATININE RATIO 16.7 (5.4-32.0); CALCIUM 8.6 MG/DL (8.5-10.1); CHLORIDE 105 MMOL/L (99-107); CREATININE 0.78 MG/DL (0.60-1.10); GLUCOSE 108 MG/DL (70-104); SODIUM 140 MMOL/L (135-145); TOTAL CARBON DIOXIDE 23.8 MMOL/L (24-32); eGFR > 90 ML/MIN
[2018-01-22] MEDS: busPIRone 5mg tablet PO SCH ×3 (08:42→21:11)
[2018-01-22] MEDS: carBAMazepine Ext. Release 200 MG TAB.ER.12H PO SCH ×2 (08:43→21:10)
[2018-01-22] MEDS: levetiracetam inj 500 MG in normal saline 100ml IV soln 95 ML IV SCH ×2 (08:43→21:11)
[2018-01-22] MEDS: enoxaparin 40mg/0.4ml syringe SUBCUT SCH (08:44)
[2018-01-22 09:00] VITALS: BP 120/72
[2018-01-22 12:00] VITALS: BP 128/73
[2018-01-22 19:00] VITALS: BP 126/73
[2018-01-22] MEDS: FYCOMPA PO SCH (21:00)
[2018-01-22] MEDS: mirtazapine 15mg tablet PO SCH (21:11)
[2018-01-22 23:30] VITALS: BP 103/63
[2018-01-23 07:00] VITALS: BP 118/55
[2018-01-23] MEDS: levetiracetam inj 500 MG in normal saline 100ml IV soln 95 ML IV SCH (08:04)
[2018-01-23] MEDS: enoxaparin 40mg/0.4ml syringe SUBCUT SCH (08:04)
[2018-01-23] MEDS: busPIRone 5mg tablet PO SCH ×3 (08:05→20:42)
[2018-01-23] MEDS: carBAMazepine Ext. Release 200 MG TAB.ER.12H PO SCH ×2 (08:05→20:41)
[2018-01-23] MEDS ORDERED: LORazepam 2 mg/ml vial IV PRN (10:15)
[2018-01-23 11:00] VITALS: BP 122/63
[2018-01-23 19:00] VITALS: BP 130/74
[2018-01-23] MEDS: mirtazapine 15mg tablet PO SCH (20:42)
[2018-01-23] MEDS: levetiracetam 250mg tablet PO SCH (20:43)
[2018-01-23] MEDS: FYCOMPA PO SCH (20:43)
[2018-01-23 23:29] VITALS: BP_SYST 109; BP_SYST 130; BP_DIAS 57; BP_DIAS 74
[2018-01-24 05:28] LABS: BASOPHILS % (AUTO) 0.2 % (0-1); EOSINOPHILS # (AUTO) 0.1 X10'3 (0-0.9); EOSINOPHILS % (AUTO) 1.5 % (0-6); HEMATOCRIT 44.5 % (42.0-52.0); HEMOGLOBIN 15.4 g/dl (14.0-17.9); LYMPHOCYTES # (AUTO) 1.9 X10'3 (1.1-4.8); LYMPHOCYTES % (AUTO) 32.2 % (21-51); MEAN CORPUSCULAR HEMOGLOBIN 32.2 PG (27.0-31.0); MEAN CORPUSCULAR HGB CONC 34.5 % (33.0-36.5); MEAN CORPUSCULAR VOLUME 93.3 FL (78-98); MEAN PLATELET VOLUME 6.8 FL (7.4-10.4); MONOCYTES # (AUTO) 0.8 X10'3 (0-0.9); MONOCYTES % (AUTO) 13.8 % (2-12); NEUTROPHILS % (AUTO) 52.3 % (42-75); PLATELET COUNT 207 X10'3 (140-440); RED BLOOD COUNT 4.77 X10'6 (4.70-6.10); RED CELL DISTRIBUTION WIDTH 13.6 % (11.5-14.5); WHITE BLOOD COUNT 5.8 X10'3 (4.5-11.0)
[2018-01-24 05:59] LABS: ALBUMIN 3.9 G/DL (3.4-5.0); ANION GAP 15 (8-16); BLOOD UREA NITROGEN 20 MG/DL (7-18); BUN/CREATININE RATIO 26.3 (5.4-32.0); CALCIUM 9.5 MG/DL (8.5-10.1); CHLORIDE 105 MMOL/L (99-107); CREATININE 0.76 MG/DL (0.60-1.10); GLUCOSE 84 MG/DL (70-104); MAGNESIUM 1.6 MG/DL (1.5-2.4); PHOSPHORUS 5.3 MG/DL (2.3-4.5); POTASSIUM 3.5 MMOL/L (3.5-5.1); SODIUM 144 MMOL/L (135-145); TOTAL CARBON DIOXIDE 24.2 MMOL/L (24-32); eGFR > 90 ML/MIN
[2018-01-24 07:00] VITALS: BP 130/80
[2018-01-24] MEDS: busPIRone 5mg tablet PO SCH (09:43)
[2018-01-24] MEDS: levetiracetam 250mg tablet PO SCH (09:44)
[2018-01-24] MEDS: carBAMazepine Ext. Release 200 MG TAB.ER.12H PO SCH (09:44)
[2018-01-24] MEDS: enoxaparin 40mg/0.4ml syringe SUBCUT SCH (09:45)
[2018-01-24 11:00] VITALS: BP 142/79
== END 2018-01-24 14:07 | disposition home or self-care (01) | DRG 53 ==
LOC: ER 18:07 → ED HOLD 21:53 → SUR 3N 01-22 07:33
PROVIDERS: ADMIT Family Medicine; ATTEND Internal Medicine
PROC: 4A10X4Z Monitoring of Central Nervous Electrical Activity, External Approach (ICD-10-PCS; principal; 2018-01-23)
DX: G40.909 Epilepsy, unspecified, not intractable, without status epilepticus (principal); R15.9 Full incontinence of feces; F31.9 Bipolar disorder, unspecified; F12.90 Cannabis use, unspecified, uncomplicated; F14.90 Cocaine use, unspecified, uncomplicated; F15.90 Other stimulant use, unspecified, uncomplicated; M54.9 Dorsalgia, unspecified; G89.29 Other chronic pain; Z81.8 Family history of other mental and behavioral disorders; Z91.14 Patient's other noncompliance with medication regimen; Z91.19 Patient's noncompliance with other medical treatment and regimen; Z79.899 Other long term (current) drug therapy; Z82.5 Family history of asthma and other chronic lower respiratory diseases
CPT/HCPCS: 36415; 70450; 70551; 80048; 80156; 80177; 80305; 83735; 84100; 85025; 87070; 93005; 95816; 96361; 96374; 96375; 99285; J1650; J1953; J2405; J7030

== ENCOUNTER 2018-03-02 14:18 | Emergency (ER) | payer MEDICAID ==
[~2018-03-02] VITALS: Ht 188 cm; Wt 90.0 kg
[2018-03-02] MEDS ORDERED: normal saline 1000ML IV soln IVB ONE (14:25)
[2018-03-02 14:45] LABS: BASOPHILS % (AUTO) 0.5 % (0-1); EOSINOPHILS # (AUTO) 0.1 X10'3 (0-0.9); EOSINOPHILS % (AUTO) 1.9 % (0-6); HEMATOCRIT 46.5 % (42.0-52.0); HEMOGLOBIN 15.9 g/dl (14.0-17.9); LYMPHOCYTES # (AUTO) 1.3 X10'3 (1.1-4.8); LYMPHOCYTES % (AUTO) 19.2 % (21-51); MEAN CORPUSCULAR HGB CONC 34.1 % (33.0-36.5); MEAN CORPUSCULAR VOLUME 93.8 FL (78-98); MEAN PLATELET VOLUME 6.3 FL (7.4-10.4); MONOCYTES # (AUTO) 0.4 X10'3 (0-0.9); MONOCYTES % (AUTO) 5.7 % (2-12); NEUTROPHILS # (AUTO) 4.8 X10'3 (1.8-7.7); NEUTROPHILS % (AUTO) 72.7 % (42-75); PLATELET COUNT 229 X10'3 (140-440); RED BLOOD COUNT 4.95 X10'6 (4.70-6.10); RED CELL DISTRIBUTION WIDTH 13.9 % (11.5-14.5); WHITE BLOOD COUNT 6.6 X10'3 (4.5-11.0)
[2018-03-02 15:07] LABS: ALANINE AMINOTRANSFERASE 34 U/L (12-78); ALBUMIN 4.2 G/DL (3.4-5.0); ALBUMIN/GLOBULIN RATIO 1.3 (1.1-1.5); ALKALINE PHOSPHATASE 79 IU/L (46-116); ANION GAP 10 (8-16); ASPARTATE AMINO TRANSFERASE 18 U/L (10-37); BILIRUBIN,TOTAL 0.5 MG/DL (0.1-1.0); BLOOD UREA NITROGEN 12 MG/DL (7-18); BUN/CREATININE RATIO 11.4 (5.4-32.0); CALCIUM 9.4 MG/DL (8.5-10.1); CHLORIDE 105 MMOL/L (99-107); CREATININE 1.05 MG/DL (0.60-1.10); GLUCOSE 144 MG/DL (70-104); POTASSIUM 3.6 MMOL/L (3.5-5.1); SODIUM 139 MMOL/L (135-145); TOTAL CARBON DIOXIDE 24.1 MMOL/L (24-32); TOTAL PROTEIN 7.4 G/DL (6.4-8.2); eGFR 84 ML/MIN
[2018-03-02 15:09] LABS: CARBAMAZEPINE (TEGRETOL) 8.8 UG/ML (4.0-12.0)
[2018-03-02 15:52] VITALS: BP 121/71
== END 2018-03-02 15:54 | disposition home or self-care (01) ==
LOC: ER 14:20
DX: G40.909 Epilepsy, unspecified, not intractable, without status epilepticus (principal); G89.29 Other chronic pain; F12.90 Cannabis use, unspecified, uncomplicated; F15.90 Other stimulant use, unspecified, uncomplicated; F14.90 Cocaine use, unspecified, uncomplicated; Z79.899 Other long term (current) drug therapy
CPT/HCPCS: 36415; 80053; 80156; 85025; 99284; A6258; J7030

== ENCOUNTER 2018-03-28 12:52 | Emergency (ER) | payer MEDICAID ==
[~2018-03-28] VITALS: Ht 180.3 cm; Wt 86.4 kg
[2018-03-28] MEDS ORDERED: carBAMazepine 100mg chewable tablet PO ONE (13:45)
[2018-03-28 14:04] VITALS: BP 125/67
== END 2018-03-28 14:05 | disposition home or self-care (01) ==
LOC: ER 12:52
DX: R41.82 Altered mental status, unspecified (principal); F12.90 Cannabis use, unspecified, uncomplicated; F15.90 Other stimulant use, unspecified, uncomplicated; F14.90 Cocaine use, unspecified, uncomplicated; G89.29 Other chronic pain; M54.9 Dorsalgia, unspecified; Z88.8 Allergy status to other drugs, medicaments and biological substances
CPT/HCPCS: 99284

== ENCOUNTER 2018-03-28 15:41 | Emergency (ER) | payer MEDICAID ==
[~2018-03-28] VITALS: Ht 170.2 cm; Wt 68.0 kg
[2018-03-28] MEDS: LORazepam 2 mg/ml vial IV ONE ×2 (15:45→16:06)
[2018-03-28] MEDS: normal saline 1000ML IV soln IVB ONE ×2 (15:45→16:06)
[2018-03-28 16:00] LABS: BASOPHILS % (AUTO) 0.4 % (0-1); EOSINOPHILS # (AUTO) 0.1 X10'3 (0-0.9); EOSINOPHILS % (AUTO) 1.9 % (0-6); HEMATOCRIT 44.4 % (42.0-52.0); HEMOGLOBIN 15.1 g/dl (14.0-17.9); LYMPHOCYTES # (AUTO) 1.3 X10'3 (1.1-4.8); LYMPHOCYTES % (AUTO) 21.2 % (21-51); MEAN CORPUSCULAR HEMOGLOBIN 32.4 PG (27.0-31.0); MEAN CORPUSCULAR HGB CONC 34.1 % (33.0-36.5); MEAN PLATELET VOLUME 6.8 FL (7.4-10.4); MONOCYTES # (AUTO) 0.5 X10'3 (0-0.9); MONOCYTES % (AUTO) 8.5 % (2-12); NEUTROPHILS # (AUTO) 4.2 X10'3 (1.8-7.7); PLATELET COUNT 212 X10'3 (140-440); RED BLOOD COUNT 4.67 X10'6 (4.70-6.10); WHITE BLOOD COUNT 6.2 X10'3 (4.5-11.0)
[2018-03-28 16:20] LABS: ALANINE AMINOTRANSFERASE 22 U/L (12-78); ALBUMIN 4.1 G/DL (3.4-5.0); ALBUMIN/GLOBULIN RATIO 1.3 (1.1-1.5); ALKALINE PHOSPHATASE 71 IU/L (46-116); ANION GAP 15 (8-16); ASPARTATE AMINO TRANSFERASE 16 U/L (10-37); BILIRUBIN,TOTAL 0.3 MG/DL (0.1-1.0); BLOOD UREA NITROGEN 11 MG/DL (7-18); BUN/CREATININE RATIO 10.5 (5.4-32.0); CALCIUM 8.9 MG/DL (8.5-10.1); CHLORIDE 104 MMOL/L (99-107); CREATININE 1.05 MG/DL (0.60-1.10); GLUCOSE 131 MG/DL (70-104); POTASSIUM 3.4 MMOL/L (3.5-5.1); SODIUM 141 MMOL/L (135-145); TOTAL CARBON DIOXIDE 22.4 MMOL/L (24-32); TOTAL PROTEIN 7.3 G/DL (6.4-8.2); eGFR 84 ML/MIN
[2018-03-28] MEDS ORDERED: ondansetron 4mg rapidly disintigrating tab PO ONE (16:30)
[2018-03-28 16:32] LABS: URINE AMPHETAMINE SCREEN NEGATIVE (Neg); URINE BARBITUATE SCREEN NEGATIVE (Neg); URINE BENZODIAZEPINES SCREEN POSITIVE (Neg); URINE CANNABINOID SCREEN POSITIVE (Neg); URINE COCAINE SCREEN NEGATIVE (Neg); URINE METHADONE SCREEN NEGATIVE (Neg); URINE OPIATE SCREEN NEGATIVE (Neg); URINE PHENCYCLIDINE SCREEN NEGATIVE (Neg)
[2018-03-28] MEDS ORDERED: LORazepam 1 MG tablet PO ONE (16:45)
[2018-03-28] MEDS ORDERED: potassium Cl 20 mEq SR tablet PO STA (17:30)
[2018-03-28 18:07] VITALS: BP 113/63
== END 2018-03-28 18:17 | disposition home or self-care (01) ==
LOC: ER 15:42
DX: G40.909 Epilepsy, unspecified, not intractable, without status epilepticus (principal); F12.90 Cannabis use, unspecified, uncomplicated; F15.90 Other stimulant use, unspecified, uncomplicated; F14.90 Cocaine use, unspecified, uncomplicated; G89.29 Other chronic pain; Z88.8 Allergy status to other drugs, medicaments and biological substances; Z79.899 Other long term (current) drug therapy
CPT/HCPCS: 36415; 80053; 80156; 80305; 85025; 99284; A4344; A4353; J2060; J7030

== ENCOUNTER 2018-03-28 19:42 | Emergency (ER) | payer MEDICAID ==
[~2018-03-28] VITALS: Ht 185.4 cm; Wt 91.0 kg
[2018-03-28] MEDS ORDERED: LORazepam 2 mg/ml vial IV ONE (20:15)
[2018-03-28] MEDS ORDERED: normal saline 1000ML IV soln IVB ONE (20:15)
[2018-03-28 20:59] LABS: BASOPHILS % (AUTO) 0.1 % (0-1); EOSINOPHILS % (AUTO) 0.1 % (0-6); HEMATOCRIT 41.5 % (42.0-52.0); HEMOGLOBIN 14.4 g/dl (14.0-17.9); LYMPHOCYTES % (AUTO) 10.5 % (21-51); MEAN CORPUSCULAR HEMOGLOBIN 31.9 PG (27.0-31.0); MEAN CORPUSCULAR HGB CONC 34.7 % (33.0-36.5); MEAN PLATELET VOLUME 6.6 FL (7.4-10.4); MONOCYTES # (AUTO) 0.6 X10'3 (0-0.9); MONOCYTES % (AUTO) 5.9 % (2-12); NEUTROPHILS # (AUTO) 7.8 X10'3 (1.8-7.7); NEUTROPHILS % (AUTO) 83.4 % (42-75); PLATELET COUNT 222 X10'3 (140-440); RED BLOOD COUNT 4.51 X10'6 (4.70-6.10); RED CELL DISTRIBUTION WIDTH 13.6 % (11.5-14.5); WHITE BLOOD COUNT 9.4 X10'3 (4.5-11.0)
[2018-03-28 21:14] LABS: ALANINE AMINOTRANSFERASE 20 U/L (12-78); ALBUMIN 3.8 G/DL (3.4-5.0); ALBUMIN/GLOBULIN RATIO 1.3 (1.1-1.5); ALKALINE PHOSPHATASE 65 IU/L (46-116); ANION GAP 10 (8-16); ASPARTATE AMINO TRANSFERASE 14 U/L (10-37); BILIRUBIN,TOTAL 0.3 MG/DL (0.1-1.0); BLOOD UREA NITROGEN 11 MG/DL (7-18); BUN/CREATININE RATIO 11.1 (5.4-32.0); CALCIUM 8.6 MG/DL (8.5-10.1); CHLORIDE 102 MMOL/L (99-107); CREATINE KINASE 147 U/L (39-308); CREATININE 0.99 MG/DL (0.60-1.10); ETHANOL < 0.010 GM/DL (0.0-0.010); GLUCOSE 123 MG/DL (70-104); POTASSIUM 3.7 MMOL/L (3.5-5.1); SODIUM 140 MMOL/L (135-145); TOTAL CARBON DIOXIDE 28.2 MMOL/L (24-32); TOTAL PROTEIN 6.8 G/DL (6.4-8.2); eGFR 89 ML/MIN
[2018-03-28 22:16] VITALS: BP 117/55
== END 2018-03-28 22:19 | disposition home or self-care (01) ==
LOC: ER 19:42
DX: G40.909 Epilepsy, unspecified, not intractable, without status epilepticus (principal); F12.90 Cannabis use, unspecified, uncomplicated; F15.90 Other stimulant use, unspecified, uncomplicated; F14.90 Cocaine use, unspecified, uncomplicated; G89.29 Other chronic pain; Z88.8 Allergy status to other drugs, medicaments and biological substances; Z79.899 Other long term (current) drug therapy
CPT/HCPCS: 36415; 80053; 80320; 82550; 85025; 96374; 99284; J2060; J7030

== ENCOUNTER 2018-04-24 11:48 | Emergency (ER) | payer MEDICAID ==
[2018-04-24 14:49] VITALS: BP 117/66
[2018-04-24] MEDS ORDERED: KEP500T PO (20:55)
== END 2018-04-24 14:10 | disposition home or self-care (01) ==
LOC: ER 11:49
DX: R56.9 Unspecified convulsions (principal); G89.29 Other chronic pain; F12.90 Cannabis use, unspecified, uncomplicated; F15.90 Other stimulant use, unspecified, uncomplicated; F14.90 Cocaine use, unspecified, uncomplicated; Z88.8 Allergy status to other drugs, medicaments and biological substances; Z79.899 Other long term (current) drug therapy
CPT/HCPCS: 36415; 80156; 99283

== ENCOUNTER 2018-06-03 12:57 | Emergency (ER) | payer MEDICAID ==
[~2018-06-03] VITALS: Ht 180.3 cm; Wt 80.0 kg
[2018-06-03 13:23] VITALS: BP 124/67
[2018-06-03 13:51] LABS: BASOPHILS % (AUTO) 0.4 % (0-1); EOSINOPHILS # (AUTO) 0.1 X10'3 (0-0.9); EOSINOPHILS % (AUTO) 0.9 % (0-6); HEMATOCRIT 41.9 % (42.0-52.0); HEMOGLOBIN 14.4 g/dl (14.0-17.9); LYMPHOCYTES # (AUTO) 0.8 X10'3 (1.1-4.8); LYMPHOCYTES % (AUTO) 9.3 % (21-51); MEAN CORPUSCULAR HEMOGLOBIN 32.1 PG (27.0-31.0); MEAN CORPUSCULAR HGB CONC 34.2 % (33.0-36.5); MEAN CORPUSCULAR VOLUME 93.7 FL (78-98); MEAN PLATELET VOLUME 6.8 FL (7.4-10.4); MONOCYTES # (AUTO) 0.5 X10'3 (0-0.9); MONOCYTES % (AUTO) 5.4 % (2-12); NEUTROPHILS # (AUTO) 7.2 X10'3 (1.8-7.7); PLATELET COUNT 258 X10'3 (140-440); RED BLOOD COUNT 4.48 X10'6 (4.70-6.10); RED CELL DISTRIBUTION WIDTH 13.7 % (11.5-14.5); WHITE BLOOD COUNT 8.5 X10'3 (4.5-11.0)
[2018-06-03 14:06] LABS: ALANINE AMINOTRANSFERASE 17 U/L (12-78); ALBUMIN 3.8 G/DL (3.4-5.0); ALBUMIN/GLOBULIN RATIO 1.3 (1.1-1.5); ALKALINE PHOSPHATASE 75 IU/L (46-116); ANION GAP 11 (8-16); ASPARTATE AMINO TRANSFERASE 15 U/L (10-37); BILIRUBIN,TOTAL 0.3 MG/DL (0.1-1.0); BLOOD UREA NITROGEN 10 MG/DL (7-18); BUN/CREATININE RATIO 10.3 (5.4-32.0); CALCIUM 8.9 MG/DL (8.5-10.1); CHLORIDE 107 MMOL/L (99-107); CREATININE 0.97 MG/DL (0.60-1.10); GLUCOSE 102 MG/DL (70-104); POTASSIUM 3.8 MMOL/L (3.5-5.1); SODIUM 143 MMOL/L (135-145); TOTAL PROTEIN 6.8 G/DL (6.4-8.2); eGFR > 90 ML/MIN
[2018-06-03 14:07] LABS: CARBAMAZEPINE (TEGRETOL) 5.8 UG/ML (4.0-12.0)
== END 2018-06-03 15:11 | disposition home or self-care (01) ==
LOC: ER 12:58
DX: G40.909 Epilepsy, unspecified, not intractable, without status epilepticus (principal); G89.29 Other chronic pain; M54.9 Dorsalgia, unspecified; F12.90 Cannabis use, unspecified, uncomplicated; F15.90 Other stimulant use, unspecified, uncomplicated; F14.90 Cocaine use, unspecified, uncomplicated; Z88.8 Allergy status to other drugs, medicaments and biological substances
CPT/HCPCS: 36415; 80053; 80156; 85025; 99284

== ENCOUNTER 2018-06-03 16:23 | Emergency (ER) | payer MEDICAID ==
[~2018-06-03] VITALS: Ht 647.4 cm; Wt 84.1 kg
[2018-06-03] MEDS ORDERED: LORazepam 2 mg/ml vial IV ONE (16:30)
[2018-06-03] MEDS ORDERED: HYDROcodone/acetaminophen 10/325mg tab PO ONE (17:55)
[2018-06-03] MEDS ORDERED: ketorolac trometh. 30mg/ml inj. IV ONE (17:55)
[2018-06-03 18:05] VITALS: BP 94/50
== END 2018-06-03 18:32 | disposition home or self-care (01) ==
LOC: ER 16:23
DX: G40.909 Epilepsy, unspecified, not intractable, without status epilepticus (principal); G89.29 Other chronic pain; F12.90 Cannabis use, unspecified, uncomplicated; F15.90 Other stimulant use, unspecified, uncomplicated; F14.90 Cocaine use, unspecified, uncomplicated; Z88.8 Allergy status to other drugs, medicaments and biological substances; Z79.899 Other long term (current) drug therapy
CPT/HCPCS: 96374; 96375; 99284; J1885; J2060; J7030

== ENCOUNTER 2018-06-03 23:44 | Emergency (ER) | payer MEDICAID ==
[~2018-06-03] VITALS: Ht 182.9 cm; Wt 81.0 kg
[2018-06-04] MEDS ORDERED: normal saline 1000ML IV soln IVB ONE (00:05)
[2018-06-04] MEDS ORDERED: LORazepam 2 mg/ml vial IV ONE (00:05)
[2018-06-04] MEDS ORDERED: levetiracetam inj 1,500 MG in normal saline 100ml IV soln 100 ML IV ONE (00:10)
[2018-06-04] MEDS ORDERED: ondansetron/PF 4mg/2ml inj IV ONE ×2 (00:15)
[2018-06-04 00:45] LABS: BASOPHILS % (AUTO) 0.2 % (0-1); EOSINOPHILS % (AUTO) 0 % (0-6); LYMPHOCYTES # (AUTO) 1.4 X10'3 (1.1-4.8); LYMPHOCYTES % (AUTO) 11.8 % (21-51); MEAN CORPUSCULAR HGB CONC 34.2 % (33.0-36.5); MEAN CORPUSCULAR VOLUME 93.6 FL (78-98); MEAN PLATELET VOLUME 7.2 FL (7.4-10.4); MONOCYTES # (AUTO) 0.7 X10'3 (0-0.9); MONOCYTES % (AUTO) 5.7 % (2-12); NEUTROPHILS # (AUTO) 9.7 X10'3 (1.8-7.7); NEUTROPHILS % (AUTO) 82.3 % (42-75); PLATELET COUNT 290 X10'3 (140-440); RED BLOOD COUNT 4.38 X10'6 (4.70-6.10); WHITE BLOOD COUNT 11.8 X10'3 (4.5-11.0)
[2018-06-04 00:52] LABS: PARTIAL THROMBOPLASTIN TIME 26 SECONDS (22-32)
[2018-06-04 01:05] LABS: ALANINE AMINOTRANSFERASE 17 U/L (12-78); ALBUMIN/GLOBULIN RATIO 1.3 (1.1-1.5); ALKALINE PHOSPHATASE 78 IU/L (46-116); ANION GAP 14 (8-16); ASPARTATE AMINO TRANSFERASE 18 U/L (10-37); BILIRUBIN,TOTAL 0.5 MG/DL (0.1-1.0); BLOOD UREA NITROGEN 12 MG/DL (7-18); BUN/CREATININE RATIO 11.5 (5.4-32.0); CALCIUM 8.8 MG/DL (8.5-10.1); CHLORIDE 104 MMOL/L (99-107); CREATININE 1.04 MG/DL (0.60-1.10); GLUCOSE 139 MG/DL (70-104); POTASSIUM 3.4 MMOL/L (3.5-5.1); SODIUM 141 MMOL/L (135-145); TOTAL CARBON DIOXIDE 23.4 MMOL/L (24-32); TOTAL PROTEIN 7.1 G/DL (6.4-8.2); eGFR 84 ML/MIN
[2018-06-04 01:12] LABS: CREATINE KINASE 147 U/L (39-308); MAGNESIUM 1.4 MG/DL (1.5-2.4); PHENYTOIN (DILANTIN) 0.7 UG/ML (10.0-20.0); PHOSPHORUS 3.1 MG/DL (2.3-4.5)
[2018-06-04 01:15] LABS: ACETAMINOPHEN < 2.0 UG/ML (10-30); VALPROATE < 3.0 UG/ML (50-100)
[2018-06-04 01:16] LABS: CARBAMAZEPINE (TEGRETOL) 6.6 UG/ML (4.0-12.0)
[2018-06-04] MEDS ORDERED: carBAMazepine 100mg chewable tablet PO ONE (02:26)
[2018-06-04 02:52] VITALS: BP 129/60
[2018-06-04] MEDS ORDERED: levetiracetam inj 1,500 MG in normal saline 100ml IV soln 85 ML IV SCH (08:00)
== END 2018-06-04 02:55 | disposition home or self-care (01) ==
LOC: ER 23:44
DX: R56.9 Unspecified convulsions (principal); G89.29 Other chronic pain; M54.9 Dorsalgia, unspecified; F12.90 Cannabis use, unspecified, uncomplicated; F15.90 Other stimulant use, unspecified, uncomplicated; F14.90 Cocaine use, unspecified, uncomplicated; Z88.8 Allergy status to other drugs, medicaments and biological substances
CPT/HCPCS: 36415; 80053; 80156; 80164; 80185; 80329; 82140; 82550; 83735; 84100; 84443; 85025; 85610; 85730; 96365; 96375; 99284; J1953; J2060; J2405; J7030

== ENCOUNTER 2018-06-19 16:07 | Emergency (ER) | payer MEDICAID ==
[~2018-06-19] VITALS: Ht 182.9 cm; Wt 100.0 kg
[2018-06-19] MEDS ORDERED: LORazepam 2 mg/ml vial IV ONE (16:15)
[2018-06-19] MEDS ORDERED: normal saline 1000ML IV soln IVB ONE (16:15)
[2018-06-19] MEDS ORDERED: LORazepam 2 mg/ml vial IM ONE (16:25)
[2018-06-19 16:45] LABS: BASOPHILS % (AUTO) 0.5 % (0-1); EOSINOPHILS # (AUTO) 0.2 X10'3 (0-0.9); EOSINOPHILS % (AUTO) 2.1 % (0-6); HEMATOCRIT 42.1 % (42.0-52.0); HEMOGLOBIN 14.4 g/dl (14.0-17.9); LYMPHOCYTES # (AUTO) 1.9 X10'3 (1.1-4.8); MEAN CORPUSCULAR HEMOGLOBIN 32.2 PG (27.0-31.0); MEAN CORPUSCULAR HGB CONC 34.2 % (33.0-36.5); MONOCYTES # (AUTO) 0.7 X10'3 (0-0.9); MONOCYTES % (AUTO) 7.2 % (2-12); NEUTROPHILS # (AUTO) 6.6 X10'3 (1.8-7.7); NEUTROPHILS % (AUTO) 70.2 % (42-75); PLATELET COUNT 302 X10'3 (140-440); RED BLOOD COUNT 4.48 X10'6 (4.70-6.10); RED CELL DISTRIBUTION WIDTH 13.3 % (11.5-14.5); WHITE BLOOD COUNT 9.4 X10'3 (4.5-11.0)
[2018-06-19 17:03] LABS: ALANINE AMINOTRANSFERASE 25 U/L (12-78); BILIRUBIN,TOTAL 0.4 MG/DL (0.1-1.0); BLOOD UREA NITROGEN 12 MG/DL (7-18); BUN/CREATININE RATIO 11.4 (5.4-32.0); CALCIUM 9.5 MG/DL (8.5-10.1); CHLORIDE 104 MMOL/L (99-107); CREATININE 1.05 MG/DL (0.60-1.10); GLUCOSE 119 MG/DL (70-104); SODIUM 143 MMOL/L (135-145); TOTAL PROTEIN 7.3 G/DL (6.4-8.2); eGFR 83 ML/MIN
[2018-06-19 17:26] LABS: ALBUMIN/GLOBULIN RATIO 1.2 (1.1-1.5); ALKALINE PHOSPHATASE 71 IU/L (46-116); ANION GAP 16 (8-16); ASPARTATE AMINO TRANSFERASE 22 U/L (10-37); POTASSIUM 3.9 MMOL/L (3.5-5.1)
[2018-06-19 17:40] LABS: URINE AMPHETAMINE SCREEN NEGATIVE (Neg); URINE BARBITUATE SCREEN NEGATIVE (Neg); URINE BENZODIAZEPINES SCREEN POSITIVE (Neg); URINE CANNABINOID SCREEN POSITIVE (Neg); URINE COCAINE SCREEN NEGATIVE (Neg); URINE METHADONE SCREEN NEGATIVE (Neg); URINE OPIATE SCREEN NEGATIVE (Neg); URINE PHENCYCLIDINE SCREEN NEGATIVE (Neg)
[2018-06-19 19:00] VITALS: BP 121/72
== END 2018-06-19 19:09 | disposition home or self-care (01) ==
LOC: ER 16:07
DX: G40.909 Epilepsy, unspecified, not intractable, without status epilepticus (principal); R45.1 Restlessness and agitation; R41.0 Disorientation, unspecified; G89.29 Other chronic pain; J44.9 Chronic obstructive pulmonary disease, unspecified; F32.9 Major depressive disorder, single episode, unspecified; F12.90 Cannabis use, unspecified, uncomplicated; F15.90 Other stimulant use, unspecified, uncomplicated; F14.90 Cocaine use, unspecified, uncomplicated; Z88.8 Allergy status to other drugs, medicaments and biological substances
CPT/HCPCS: 36415; 80053; 80305; 85025; 96372; 99284; J2060

== ENCOUNTER 2018-08-04 09:12 | Emergency (ER) | payer MEDICAID ==
[~2018-08-04] VITALS: Ht 182.9 cm; Wt 81.8 kg
[2018-08-04] MEDS ORDERED: ondansetron/PF 4mg/2ml inj IV ONE (09:15)
[2018-08-04] MEDS ORDERED: normal saline 1000ML IV soln IVB ONE (09:15)
[2018-08-04] MEDS ORDERED: magnesium 2GM in 50ml NS 25 ML IV ONE (09:15)
[2018-08-04] MEDS ORDERED: LORazepam 2 mg/ml vial IV ONE (09:15)
[2018-08-04 10:37] VITALS: BP 123/60
[2018-08-04] MEDS ORDERED: DIAZ5TAB4 PO (22:30)
[2018-08-04] MEDS ORDERED: MYCOL15CR TOP (22:30)
[2018-08-04] MEDS ORDERED: OLAN2.5T3 PO (22:30)
[2018-08-04] MEDS ORDERED: PERA12TA PO (22:30)
[2018-08-04] MEDS ORDERED: BUSP10TA11 PO (22:30)
== END 2018-08-04 10:45 | disposition home or self-care (01) ==
LOC: ER 09:12
DX: G40.909 Epilepsy, unspecified, not intractable, without status epilepticus (principal); J44.9 Chronic obstructive pulmonary disease, unspecified; F12.90 Cannabis use, unspecified, uncomplicated; F15.90 Other stimulant use, unspecified, uncomplicated; F14.90 Cocaine use, unspecified, uncomplicated; Z88.8 Allergy status to other drugs, medicaments and biological substances
CPT/HCPCS: 96365; 96375; 99284; J2060; J3475; J7030

== ENCOUNTER 2018-08-04 20:25 | Inpatient (IN) | payer MEDICAID ==
[~2018-08-04] VITALS: Ht 172.7 cm; Wt 77.3 kg
[2018-08-04] MEDS ORDERED: normal saline 1000ml 1,000 ML IV ONE (20:44)
[2018-08-04] MEDS ORDERED: levetiracetam inj 1,000 MG in normal saline 100ml IV soln 90 ML IV STA (20:44)
[2018-08-04] MEDS ORDERED: LORazepam 2 mg/ml vial IV ONE ×4 (20:45→21:05)
[2018-08-04] MEDS ORDERED: LORazepam 2 mg/ml vial ONE (20:47)
[2018-08-04] MEDS ORDERED: temazepam 15mg capsule PO PRN (21:00)
[2018-08-04 21:02] LABS: BASOPHILS % (AUTO) 0.1 % (0-1); EOSINOPHILS # (AUTO) 0.2 X10'3 (0-0.9); EOSINOPHILS % (AUTO) 1.3 % (0-6); HEMATOCRIT 41.8 % (42.0-52.0); LYMPHOCYTES # (AUTO) 1.8 X10'3 (1.1-4.8); LYMPHOCYTES % (AUTO) 11.9 % (21-51); MEAN CORPUSCULAR HEMOGLOBIN 31.8 PG (27.0-31.0); MEAN CORPUSCULAR HGB CONC 33.4 % (33.0-36.5); MEAN CORPUSCULAR VOLUME 95.2 FL (78-98); MEAN PLATELET VOLUME 6.9 FL (7.4-10.4); MONOCYTES # (AUTO) 0.8 X10'3 (0-0.9); MONOCYTES % (AUTO) 5.3 % (2-12); NEUTROPHILS # (AUTO) 12.3 X10'3 (1.8-7.7); NEUTROPHILS % (AUTO) 81.4 % (42-75); PLATELET COUNT 311 X10'3 (140-440); RED CELL DISTRIBUTION WIDTH 13.5 % (11.5-14.5); WHITE BLOOD COUNT 15.1 X10'3 (4.5-11.0)
[2018-08-04 21:15] LABS: PARTIAL THROMBOPLASTIN TIME 28 SECONDS (22-32); PROTHROMBIN TIME 10.3 SECONDS (9.0-12.0)
[2018-08-04 21:16] LABS: ALANINE AMINOTRANSFERASE 20 U/L (12-78); ALBUMIN 4.1 G/DL (3.4-5.0); ALBUMIN/GLOBULIN RATIO 1.4 (1.1-1.5); ALKALINE PHOSPHATASE 76 IU/L (46-116); ANION GAP 21 (8-16); ASPARTATE AMINO TRANSFERASE 14 U/L (10-37); BILIRUBIN,TOTAL 0.4 MG/DL (0.1-1.0); BLOOD UREA NITROGEN 9 MG/DL (7-18); BUN/CREATININE RATIO 7.1 (5.4-32.0); CALCIUM 8.4 MG/DL (8.5-10.1); CHLORIDE 102 MMOL/L (99-107); CREATININE 1.27 MG/DL (0.60-1.10); GLUCOSE 145 MG/DL (70-104); POTASSIUM 3.2 MMOL/L (3.5-5.1); SODIUM 141 MMOL/L (135-145); TOTAL CARBON DIOXIDE 17.6 MMOL/L (24-32); TOTAL PROTEIN 7.1 G/DL (6.4-8.2); eGFR 67 ML/MIN
[2018-08-04 21:25] LABS: CARBAMAZEPINE (TEGRETOL) 4.8 UG/ML (4.0-12.0); CREATINE KINASE 188 U/L (39-308)
[2018-08-04 21:37] LABS: ETHANOL < 0.010 GM/DL (0.0-0.010)
[2018-08-04 21:56] LABS: URINE AMPHETAMINE SCREEN NEGATIVE (Neg); URINE BARBITUATE SCREEN NEGATIVE (Neg); URINE BENZODIAZEPINES SCREEN NEGATIVE (Neg); URINE CANNABINOID SCREEN POSITIVE (Neg); URINE COCAINE SCREEN NEGATIVE (Neg); URINE METHADONE SCREEN NEGATIVE (Neg); URINE OPIATE SCREEN NEGATIVE (Neg); URINE PHENCYCLIDINE SCREEN NEGATIVE (Neg)
[2018-08-04] MEDS ORDERED: PERA12TA PO (22:30)
[2018-08-04] MEDS ORDERED: DIAZ5TAB4 PO (22:30)
[2018-08-04] MEDS ORDERED: OLAN2.5T3 PO (22:30)
[2018-08-04] MEDS ORDERED: BUSP10TA11 PO (22:30)
[2018-08-04] MEDS ORDERED: MYCOL15CR TOP (22:30)
[2018-08-04 23:30] LABS: CLARITY,URINE CLEAR (Clear); COLOR,URINE YELLOW (Yellow); GLUCOSE, URINE NEGATIVE (Neg); KETONES,URINE 15 mg/dl (Neg); LEUKOCYTE ESTERASE ,URINE NEGATIVE (Neg); NITRITES, URINE NEGATIVE (Neg); OCCULT BLOOD,URINE SMALL (Neg); PH,URINE 5.5 (4.8-8.0); PROTEIN,URINE 100 mg/dl (Neg); UROBILINOGEN,URINE 0.2 E.U/dL (0.2-1.0)
[2018-08-04 23:40] LABS: ABG BASE EXCESS -1.8 mmol/L (-2.0-3.0); ABG HCO3 22.5 mmol/L (22.0-26.0); ABG OXYGEN SATURATION 95.8 % (95-98); ABG PCO2 (T) 37.6 mmHg (35.0-48.0); ABG PH (T) 7.397 (7.350-7.450); ABG PO2 (T) 84.4 mmHg (83-108); ALLEN'S TEST Positive; FCOHb 0.4 % (0.5-1.5); FMetHb 0.3 % (0.3-1.12); FO2Hb 95.1 % (94-100); PATIENT TEMPERATURE 37.6; TOTAL HEMOGLOBIN 13.7 G/dl (14.0-18.0)
[2018-08-04 23:43] LABS: UA COLLECTION TYPE VOIDED
[2018-08-04 23:44] LABS: MUCUS STRANDS MODERATE /LPF (Neg)
[2018-08-04 23:45] LABS: SQUAMOUS EPITHELIAL CELL,UR FEW /LPF (FEW)
[2018-08-04] MEDS ORDERED: potassium Cl 40MEQ/NS 500ml 500 ML IV PRN ×2 (23:45)
[2018-08-04] MEDS ORDERED: acetaminophen 650mg rectal suppository RC PRN (23:45)
[2018-08-04] MEDS ORDERED: morphine 2 MG/ML inj. syringe IV PRN (23:45)
[2018-08-04] MEDS ORDERED: diphenhydrAMINE 25mg capsule PO PRN (23:45)
[2018-08-04] MEDS ORDERED: bisacodyl 10mg suppository rectal RC PRN (23:45)
[2018-08-04] MEDS ORDERED: diphenhydrAMINE 50 mg/ml inj IV PRN (23:45)
[2018-08-04] MEDS ORDERED: HYDROcodone/acetaminophen 10/325mg tab PO PRN (23:45)
[2018-08-04] MEDS ORDERED: potassium Cl 20 mEq SR tablet PO PRN ×2 (23:45)
[2018-08-04] MEDS ORDERED: magnesium hydroxide 30ml (MOM) UD suspension PO PRN (23:45)
[2018-08-04] MEDS ORDERED: HYDROmorphone 1 mg/ml syringe IV PRN (23:45)
[2018-08-04] MEDS ORDERED: ondansetron/PF 4mg/2ml inj IV PRN (23:45)
[2018-08-04] MEDS ORDERED: acetaminophen 325mg tablet PO PRN ×2 (23:45)
[2018-08-04] MEDS ORDERED: mag hydrox/Alum hydrox/simeth 30ml oral suspension PO PRN (23:45)
[2018-08-04 23:48] LABS: BACTERIA,URINE FEW /HPF (Neg); RBC,URINE 0-2 /HPF (0-2); WBC,URINE 0-4 /HPF (0-4)
[2018-08-05] MEDS: normal saline 1000ml 1,000 ML IV SCH ×3 (01:27→19:43)
[2018-08-05 01:28] LABS: MAGNESIUM 1.7 MG/DL (1.5-2.4)
[2018-08-05 01:30] VITALS: BP 124/71
[2018-08-05] MEDS ORDERED: LORazepam 2 mg/ml vial IM ONE (03:45)
[2018-08-05 05:00] VITALS: BP 100/52
[2018-08-05 07:00] LABS: BASOPHILS % (AUTO) 0.2 % (0-1); EOSINOPHILS % (AUTO) 0 % (0-6); HEMATOCRIT 39.5 % (42.0-52.0); HEMOGLOBIN 13.4 g/dl (14.0-17.9); LYMPHOCYTES # (AUTO) 1.6 X10'3 (1.1-4.8); LYMPHOCYTES % (AUTO) 15.9 % (21-51); MEAN CORPUSCULAR HEMOGLOBIN 31.7 PG (27.0-31.0); MEAN CORPUSCULAR HGB CONC 33.8 % (33.0-36.5); MEAN CORPUSCULAR VOLUME 93.8 FL (78-98); MEAN PLATELET VOLUME 6.8 FL (7.4-10.4); MONOCYTES # (AUTO) 0.8 X10'3 (0-0.9); MONOCYTES % (AUTO) 8.5 % (2-12); NEUTROPHILS # (AUTO) 7.4 X10'3 (1.8-7.7); NEUTROPHILS % (AUTO) 75.4 % (42-75); PLATELET COUNT 208 X10'3 (140-440); RED BLOOD COUNT 4.21 X10'6 (4.70-6.10); RED CELL DISTRIBUTION WIDTH 13.2 % (11.5-14.5); WHITE BLOOD COUNT 9.8 X10'3 (4.5-11.0)
[2018-08-05 07:38] LABS: ALANINE AMINOTRANSFERASE 18 U/L (12-78); ALBUMIN 3.5 G/DL (3.4-5.0); ALBUMIN/GLOBULIN RATIO 1.2 (1.1-1.5); ALKALINE PHOSPHATASE 68 IU/L (46-116); ANION GAP 12 (8-16); ASPARTATE AMINO TRANSFERASE 14 U/L (10-37); BILIRUBIN,TOTAL 0.6 MG/DL (0.1-1.0); BLOOD UREA NITROGEN 8 MG/DL (7-18); BUN/CREATININE RATIO 10.3 (5.4-32.0); CALCIUM 8.5 MG/DL (8.5-10.1); CHLORIDE 104 MMOL/L (99-107); CREATININE 0.78 MG/DL (0.60-1.10); GLUCOSE 94 MG/DL (70-104); POTASSIUM 3.6 MMOL/L (3.5-5.1); SODIUM 140 MMOL/L (135-145); TOTAL CARBON DIOXIDE 24.3 MMOL/L (24-32); TOTAL PROTEIN 6.4 G/DL (6.4-8.2); eGFR > 90 ML/MIN
[2018-08-05] MEDS: heparin, porcine 5000 units/ml vial SQ SCH ×3 (08:00→20:30)
[2018-08-05] MEDS: diazepam 5mg tablet PO SCH ×2 (08:00→10:04)
[2018-08-05] MEDS: busPIRone 15mg tablet PO SCH ×2 (08:00→10:04)
[2018-08-05] MEDS: docusate sod 100mg capsule PO SCH ×3 (08:00→20:00)
[2018-08-05] MEDS: OLANZapine 2.5MG tablet PO SCH ×2 (08:00→10:04)
[2018-08-05] MEDS: lamoTRIgine 100mg tablet PO SCH ×3 (08:00→20:21)
[2018-08-05] MEDS: nystatin/triamcinolone cream 15gm TP SCH ×3 (08:00→20:00)
[2018-08-05 10:00] VITALS: BP 123/56
[2018-08-05] MEDS: carBAMazepine Ext. Release 200 MG TAB.ER.12H PO SCH ×2 (10:04→20:19)
[2018-08-05] MEDS: levetiracetam 250mg tablet PO SCH ×2 (15:51→20:20)
[2018-08-05 18:00] VITALS: BP 129/70
[2018-08-05] MEDS: famotidine 20mg tablet PO SCH (20:20)
[2018-08-05 22:00] VITALS: BP 126/74
[2018-08-06] MEDS: normal saline 1000ml 1,000 ML IV SCH ×2 (05:43→17:29)
[2018-08-06 06:00] VITALS: BP 123/76
[2018-08-06 06:41] LABS: BASOPHILS % (AUTO) 0.3 % (0-1); EOSINOPHILS # (AUTO) 0.1 X10'3 (0-0.9); EOSINOPHILS % (AUTO) 0.8 % (0-6); HEMATOCRIT 40.9 % (42.0-52.0); HEMOGLOBIN 13.7 g/dl (14.0-17.9); LYMPHOCYTES # (AUTO) 1.9 X10'3 (1.1-4.8); LYMPHOCYTES % (AUTO) 29.8 % (21-51); MEAN CORPUSCULAR HEMOGLOBIN 31.6 PG (27.0-31.0); MEAN CORPUSCULAR HGB CONC 33.5 % (33.0-36.5); MEAN CORPUSCULAR VOLUME 94.3 FL (78-98); MEAN PLATELET VOLUME 7.1 FL (7.4-10.4); MONOCYTES # (AUTO) 0.7 X10'3 (0-0.9); MONOCYTES % (AUTO) 11.3 % (2-12); NEUTROPHILS # (AUTO) 3.6 X10'3 (1.8-7.7); NEUTROPHILS % (AUTO) 57.8 % (42-75); PLATELET COUNT 207 X10'3 (140-440); RED BLOOD COUNT 4.34 X10'6 (4.70-6.10); RED CELL DISTRIBUTION WIDTH 13.3 % (11.5-14.5); WHITE BLOOD COUNT 6.3 X10'3 (4.5-11.0)
[2018-08-06 07:19] LABS: ALANINE AMINOTRANSFERASE 21 U/L (12-78); ALBUMIN 3.7 G/DL (3.4-5.0); ALBUMIN/GLOBULIN RATIO 1.3 (1.1-1.5); ALKALINE PHOSPHATASE 56 IU/L (46-116); ANION GAP 13 (8-16); ASPARTATE AMINO TRANSFERASE 15 U/L (10-37); BILIRUBIN,TOTAL 0.6 MG/DL (0.1-1.0); BLOOD UREA NITROGEN 10 MG/DL (7-18); BUN/CREATININE RATIO 12.2 (5.4-32.0); CALCIUM 8.8 MG/DL (8.5-10.1); CHLORIDE 106 MMOL/L (99-107); CREATININE 0.82 MG/DL (0.60-1.10); GLUCOSE 82 MG/DL (70-104); POTASSIUM 3.6 MMOL/L (3.5-5.1); SODIUM 143 MMOL/L (135-145); TOTAL CARBON DIOXIDE 24.4 MMOL/L (24-32); TOTAL PROTEIN 6.6 G/DL (6.4-8.2); eGFR > 90 ML/MIN
[2018-08-06] MEDS: diazepam 5mg tablet PO SCH (08:57)
[2018-08-06] MEDS: OLANZapine 2.5MG tablet PO SCH (08:57)
[2018-08-06] MEDS: levetiracetam 250mg tablet PO SCH ×2 (08:57→20:28)
[2018-08-06] MEDS: lamoTRIgine 100mg tablet PO SCH ×2 (08:57→20:28)
[2018-08-06] MEDS: docusate sod 100mg capsule PO SCH ×2 (08:57→20:00)
[2018-08-06] MEDS: carBAMazepine Ext. Release 200 MG TAB.ER.12H PO SCH ×2 (08:58→20:27)
[2018-08-06] MEDS: heparin, porcine 5000 units/ml vial SQ SCH ×2 (08:59→20:26)
[2018-08-06] MEDS: nystatin/triamcinolone cream 15gm TP SCH ×2 (08:59→20:00)
[2018-08-06] MEDS: busPIRone 15mg tablet PO SCH (09:11)
[2018-08-06 10:00] VITALS: BP 115/57
[2018-08-06 18:00] VITALS: BP 123/70
[2018-08-06] MEDS: famotidine 20mg tablet PO SCH (20:27)
[2018-08-07] MEDS: normal saline 1000ml 1,000 ML IV SCH (02:03)
[2018-08-07 05:00] VITALS: BP 114/71
[2018-08-07 07:24] LABS: BASOPHILS % (AUTO) 0.3 % (0-1); EOSINOPHILS # (AUTO) 0.1 X10'3 (0-0.9); EOSINOPHILS % (AUTO) 1.5 % (0-6); HEMATOCRIT 38.9 % (42.0-52.0); HEMOGLOBIN 12.9 g/dl (14.0-17.9); LYMPHOCYTES # (AUTO) 1.5 X10'3 (1.1-4.8); MEAN CORPUSCULAR HEMOGLOBIN 31.4 PG (27.0-31.0); MEAN CORPUSCULAR HGB CONC 33.1 % (33.0-36.5); MEAN CORPUSCULAR VOLUME 94.8 FL (78-98); MEAN PLATELET VOLUME 7.1 FL (7.4-10.4); MONOCYTES # (AUTO) 0.4 X10'3 (0-0.9); MONOCYTES % (AUTO) 10.7 % (2-12); NEUTROPHILS % (AUTO) 49.5 % (42-75); PLATELET COUNT 197 X10'3 (140-440)
[2018-08-07 07:48] LABS: ALANINE AMINOTRANSFERASE 17 U/L (12-78); ALBUMIN 3.2 G/DL (3.4-5.0); ALBUMIN/GLOBULIN RATIO 1.3 (1.1-1.5); ALKALINE PHOSPHATASE 49 IU/L (46-116); ANION GAP 10 (8-16); ASPARTATE AMINO TRANSFERASE 8 U/L (10-37); BILIRUBIN,TOTAL 0.4 MG/DL (0.1-1.0); BLOOD UREA NITROGEN 10 MG/DL (7-18); CHLORIDE 110 MMOL/L (99-107); CREATININE 0.77 MG/DL (0.60-1.10); GLUCOSE 87 MG/DL (70-104); POTASSIUM 3.4 MMOL/L (3.5-5.1); SODIUM 146 MMOL/L (135-145); TOTAL CARBON DIOXIDE 26.4 MMOL/L (24-32); TOTAL PROTEIN 5.7 G/DL (6.4-8.2); eGFR > 90 ML/MIN
[2018-08-07] MEDS: docusate sod 100mg capsule PO SCH (08:00)
[2018-08-07] MEDS: nystatin/triamcinolone cream 15gm TP SCH (08:00)
[2018-08-07] MEDS: diazepam 5mg tablet PO SCH (09:22)
[2018-08-07] MEDS: lamoTRIgine 100mg tablet PO SCH (09:22)
[2018-08-07] MEDS: OLANZapine 2.5MG tablet PO SCH (09:22)
[2018-08-07] MEDS: levetiracetam 250mg tablet PO SCH (09:22)
[2018-08-07] MEDS: carBAMazepine Ext. Release 200 MG TAB.ER.12H PO SCH (09:23)
[2018-08-07] MEDS: heparin, porcine 5000 units/ml vial SQ SCH (09:24)
[2018-08-07] MEDS ORDERED: FAMO20TA8 PO (09:46)
[2018-08-07] MEDS ORDERED: LEVE250T PO (09:46)
[2018-08-07] MEDS ORDERED: FLU VACC QUAD 2018(5 YR UP)/PF 60 MCG/0.5 ML SYRINGE IM ONE (10:00)
[2018-08-07] MEDS ORDERED: busPIRone 5mg tablet PO SCH (10:30)
== END 2018-08-07 11:29 | disposition home or self-care (01) | DRG 53 ==
LOC: ER 20:25 → ED HOLD 23:43 → ORTHO 4S 08-05 01:19
PROVIDERS: ADMIT Family Medicine; ATTEND Family Medicine
DX: G40.401 Other generalized epilepsy and epileptic syndromes, not intractable, with status epilepticus (principal); E87.2 Acidosis; E86.0 Dehydration; E87.6 Hypokalemia; F12.90 Cannabis use, unspecified, uncomplicated; F14.90 Cocaine use, unspecified, uncomplicated; G89.29 Other chronic pain; M54.9 Dorsalgia, unspecified; F15.90 Other stimulant use, unspecified, uncomplicated; F31.9 Bipolar disorder, unspecified; Z82.5 Family history of asthma and other chronic lower respiratory diseases; Z81.8 Family history of other mental and behavioral disorders; Z79.899 Other long term (current) drug therapy; Z91.19 Patient's noncompliance with other medical treatment and regimen; Z88.8 Allergy status to other drugs, medicaments and biological substances; Z91.048 Other nonmedicinal substance allergy status
CPT/HCPCS: 36415; 36600; 70450; 71045; 80053; 80156; 80305; 80320; 81001; 82550; 82803; 83605; 83735; 83874; 83880; 84100; 84484; 85018; 85025; 85610; 85730; 87040; 87070; 93005; 96365; 96375; 99291; G0378; J1644; J1953; J2060; J2405; J7030

== ENCOUNTER 2019-05-29 09:14 | Emergency (ER) | payer MEDICAID ==
[~2019-05-29] VITALS: Ht 180.3 cm; Wt 80.0 kg
[~2019-05-29 09:14] MED LIST changes: +BUSP10TA11 PO; -BUSP10TA3 PO; +DIAZ5TAB4 PO; -DIAZEPAM RC; -DOCU-267 PO; +FAMO20TA8 PO; -KEP500T PO; +LEVE250T PO; -MIRT15TA8 PO; +MYCOL15CR TOP; +OLAN2.5T3 PO; +PERA12TA PO; -PERA2TAB PO
[2019-05-29 09:17] VITALS: BP 140/95
[2019-05-29] MEDS ORDERED: LORazepam 1 MG tablet PO ONE (09:40)
[2019-05-29] MEDS ORDERED: LORazepam 2 mg/ml vial ONE (09:59)
[2019-05-29] MEDS ORDERED: normal saline 1000ML IV soln IVB ONE (10:10)
[2019-05-29 10:17] LABS: BASOPHILS % (AUTO) 0.2 % (0-1); EOSINOPHILS # (AUTO) 0.2 X10'3 (0-0.9); EOSINOPHILS % (AUTO) 2.6 % (0-6); HEMATOCRIT 44.3 % (42.0-52.0); LYMPHOCYTES # (AUTO) 1.9 X10'3 (1.1-4.8); LYMPHOCYTES % (AUTO) 21.6 % (21-51); MEAN CORPUSCULAR HEMOGLOBIN 32.2 PG (27.0-31.0); MEAN CORPUSCULAR VOLUME 94.7 FL (78-98); MEAN PLATELET VOLUME 6.6 FL (7.4-10.4); MONOCYTES # (AUTO) 0.6 X10'3 (0-0.9); MONOCYTES % (AUTO) 6.3 % (2-12); NEUTROPHILS # (AUTO) 6.1 X10'3 (1.8-7.7); NEUTROPHILS % (AUTO) 69.3 % (42-75); PLATELET COUNT 254 X10'3 (140-440); RED BLOOD COUNT 4.67 X10'6 (4.70-6.10); RED CELL DISTRIBUTION WIDTH 13.7 % (11.5-14.5); WHITE BLOOD COUNT 8.8 X10'3 (4.5-11.0)
[2019-05-29] MEDS ORDERED: levetiracetam-NS 1000mg/100ml 100 ML IV SCH ×2 (10:53→20:00)
[2019-05-29 11:04] LABS: ALANINE AMINOTRANSFERASE 25 U/L (12-78); ALBUMIN 4.2 G/DL (3.4-5.0); ALBUMIN/GLOBULIN RATIO 1.4 (1.1-1.5); ALKALINE PHOSPHATASE 66 IU/L (46-116); ANION GAP 13 (8-16); ASPARTATE AMINO TRANSFERASE 18 U/L (10-37); BILIRUBIN,TOTAL 0.4 MG/DL (0.1-1.0); BLOOD UREA NITROGEN 13 MG/DL (7-18); BUN/CREATININE RATIO 12.6 (5.4-32.0); CALCIUM 9.2 MG/DL (8.5-10.1); CHLORIDE 106 MMOL/L (99-107); CREATININE 1.03 MG/DL (0.60-1.10); ETHANOL < 0.010 GM/DL (0.0-0.010); GLUCOSE 153 MG/DL (70-104); MAGNESIUM 1.4 MG/DL (1.5-2.4); PHOSPHORUS 3.1 MG/DL (2.3-4.5); POTASSIUM 3.2 MMOL/L (3.5-5.1); SODIUM 142 MMOL/L (135-145); TOTAL CARBON DIOXIDE 22.9 MMOL/L (24-32); TOTAL PROTEIN 7.3 G/DL (6.4-8.2); eGFR 84 ML/MIN
[2019-05-29 13:19] LABS: URINE AMPHETAMINE SCREEN NEGATIVE (Neg); URINE BARBITUATE SCREEN NEGATIVE (Neg); URINE BENZODIAZEPINES SCREEN POSITIVE (Neg); URINE CANNABINOID SCREEN POSITIVE (Neg); URINE COCAINE SCREEN NEGATIVE (Neg); URINE METHADONE SCREEN NEGATIVE (Neg); URINE OPIATE SCREEN NEGATIVE (Neg); URINE PHENCYCLIDINE SCREEN NEGATIVE (Neg)
[2019-05-29 13:21] LABS: COLOR,URINE YELLOW (Yellow); GLUCOSE, URINE NEGATIVE (Neg); KETONES,URINE NEGATIVE (Neg); LEUKOCYTE ESTERASE ,URINE NEGATIVE (Neg); NITRITES, URINE NEGATIVE (Neg); OCCULT BLOOD,URINE TRACE-INTACT (Neg); PROTEIN,URINE 100 mg/dl (Neg); UROBILINOGEN,URINE 0.2 E.U/dL (0.2-1.0)
[2019-05-29 13:27] LABS: UA COLLECTION TYPE VOIDED
[2019-05-29 13:28] LABS: CLARITY,URINE SLIGHTLY CLOUDY (Clear)
[2019-05-29 13:36] LABS: AMORPHOUS URATES 1+; BACTERIA,URINE NONE SEEN /HPF (Neg); MUCUS STRANDS MODERATE /LPF (Neg); RBC,URINE NONE SEEN /HPF (0-2); SQUAMOUS EPITHELIAL CELL,UR FEW /LPF (FEW); WBC,URINE 0-4 /HPF (0-4)
[2019-05-29 13:37] LABS: HYALINE CASTS 0-3 /LPF (NEGATIVE)
--- NOTE | 2019-05-29 14:27 | NUR ---
PATIENT WILL BE DISCHARGED. ATTEMPTED TO CALL PHONE NUMBERS ON FACE SHEET. MESSAGE LEFT WITH PATIENT'S MOTHER. AWAITING CALL BACK.
[2019-05-29] MEDS ORDERED: levetiracetam inj 1,000 MG in normal saline 100ml IV soln 90 ML IV SCH (20:00)
== END 2019-05-29 16:52 | disposition home or self-care (01) ==
LOC: ER 09:14
DX: S00.81XA Abrasion of other part of head, initial encounter (principal); R56.9 Unspecified convulsions; G89.29 Other chronic pain; F31.9 Bipolar disorder, unspecified; J44.9 Chronic obstructive pulmonary disease, unspecified; F12.90 Cannabis use, unspecified, uncomplicated; F15.90 Other stimulant use, unspecified, uncomplicated; F14.90 Cocaine use, unspecified, uncomplicated; Z88.8 Allergy status to other drugs, medicaments and biological substances; Z79.899 Other long term (current) drug therapy; W18.39XA Other fall on same level, initial encounter; Y93.89 Activity, other specified; Y92.89 Other specified places as the place of occurrence of the external cause; Y99.8 Other external cause status
CPT/HCPCS: 36415; 70450; 80053; 80305; 80320; 81001; 82948; 83735; 84100; 85025; 96365; 99284; J1953; J2060; J7030; 96366; 96374; 96375

== ENCOUNTER 2019-08-20 23:41 | Emergency (ER) | payer MEDICAID ==
[~2019-08-20] VITALS: Ht 180.3 cm; Wt 77.3 kg
[~2019-08-20 23:41] MED LIST changes: -LAMO200T PO; +LAMO200T10 PO
[2019-08-21] MEDS ORDERED: normal saline 1000ml 1,000 ML IV ONE (00:20)
[2019-08-21 00:51] LABS: BASOPHILS % (AUTO) 0.5 % (0-1); EOSINOPHILS # (AUTO) 0.2 X10'3 (0-0.9); EOSINOPHILS % (AUTO) 3.8 % (0-6); HEMATOCRIT 39.2 % (42.0-52.0); HEMOGLOBIN 13.6 g/dl (14.0-17.9); LYMPHOCYTES # (AUTO) 2.1 X10'3 (1.1-4.8); LYMPHOCYTES % (AUTO) 41.1 % (21-51); MEAN CORPUSCULAR HEMOGLOBIN 32.9 PG (27.0-31.0); MEAN CORPUSCULAR HGB CONC 34.7 g/dL (33.0-36.5); MEAN CORPUSCULAR VOLUME 94.6 FL (78-98); MEAN PLATELET VOLUME 6.3 FL (7.4-10.4); MONOCYTES # (AUTO) 0.5 X10'3 (0-0.9); MONOCYTES % (AUTO) 10.2 % (2-12); NEUTROPHILS # (AUTO) 2.3 X10'3 (1.8-7.7); NEUTROPHILS % (AUTO) 44.4 % (42-75); PLATELET COUNT 200 X10'3 (140-440); RED BLOOD COUNT 4.14 X10'6 (4.70-6.10); RED CELL DISTRIBUTION WIDTH 13.3 % (11.5-14.5); WHITE BLOOD COUNT 5.2 X10'3 (4.5-11.0)
[2019-08-21 01:10] LABS: ALANINE AMINOTRANSFERASE 14 U/L (12-78); ALBUMIN 3.5 G/DL (3.4-5.0); ALBUMIN/GLOBULIN RATIO 1.3 (1.1-1.5); ALKALINE PHOSPHATASE 63 IU/L (46-116); ANION GAP 4 (8-16); ASPARTATE AMINO TRANSFERASE 8 U/L (10-37); BILIRUBIN,TOTAL 0.2 MG/DL (0.1-1.0); BLOOD UREA NITROGEN 11 MG/DL (7-18); BUN/CREATININE RATIO 13.3 (5.4-32.0); CALCIUM 8.3 MG/DL (8.5-10.1); CHLORIDE 104 MMOL/L (99-107); CREATININE 0.83 MG/DL (0.60-1.10); GLUCOSE 94 MG/DL (70-104); POTASSIUM 3.5 MMOL/L (3.5-5.1); SODIUM 139 MMOL/L (135-145); TOTAL CARBON DIOXIDE 31.1 MMOL/L (24-32); TOTAL PROTEIN 6.3 G/DL (6.4-8.2); eGFR > 90 ML/MIN
[2019-08-21 01:21] LABS: CLARITY,URINE CLEAR (Clear); COLOR,URINE YELLOW (Yellow); GLUCOSE, URINE NEGATIVE (Neg); KETONES,URINE NEGATIVE (Neg); LEUKOCYTE ESTERASE ,URINE NEGATIVE (Neg); NITRITES, URINE NEGATIVE (Neg); OCCULT BLOOD,URINE NEGATIVE (Neg); PH,URINE 6.5 (4.8-8.0); PROTEIN,URINE NEGATIVE (Neg); UROBILINOGEN,URINE 0.2 E.U/dL (0.2-1.0)
[2019-08-21 01:22] LABS: UA COLLECTION TYPE URINAL
[2019-08-21 02:14] VITALS: BP 114/59
== END 2019-08-21 02:15 | disposition home or self-care (01) ==
LOC: ER 23:41
DX: R42 Dizziness and giddiness (principal); R51 Headache; R11.10 Vomiting, unspecified; G89.29 Other chronic pain; F31.9 Bipolar disorder, unspecified; F12.90 Cannabis use, unspecified, uncomplicated; Z86.69 Personal history of other diseases of the nervous system and sense organs; Z88.8 Allergy status to other drugs, medicaments and biological substances; Z79.899 Other long term (current) drug therapy
CPT/HCPCS: 36415; 80053; 81003; 85025; 93005; 96360; 99284; J7030

== ENCOUNTER 2019-11-21 19:57 | Emergency (ER) | payer MEDICAID ==
[~2019-11-21] VITALS: Ht 185.4 cm; Wt 84.1 kg
[2019-11-21] MEDS ORDERED: acetaminophen 325mg tablet PO ONE (22:00)
[2019-11-21 22:13] VITALS: BP 228/67
== END 2019-11-21 22:15 | disposition home or self-care (01) ==
LOC: ER 19:57
DX: G40.909 Epilepsy, unspecified, not intractable, without status epilepticus (principal); G89.29 Other chronic pain; F31.9 Bipolar disorder, unspecified; F12.90 Cannabis use, unspecified, uncomplicated; Z88.8 Allergy status to other drugs, medicaments and biological substances; Z79.899 Other long term (current) drug therapy
CPT/HCPCS: 93005; 99283

== ENCOUNTER 2020-09-29 11:47 | Emergency (ER) | payer MEDICAID ==
[~2020-09-29] VITALS: Ht 185.4 cm; Wt 84.0 kg
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
[2020-09-29] MEDS ORDERED: OLANZapine 2.5MG tablet PO ONE (12:50)
--- NOTE | 2020-09-29 12:54 | NUR ---
ABOUT 10 MINS AGO PT WAS FOUND UP IN ROOM TRYING TO PULL MONITOR OFF THE WALL, TRYING TO LEAVE. REDIRECTED TO BED, ZYPREXA GIVEN PER DR. WHITTINGTON, WHO WAS AT BEDSIDE DURING EVENT.
[2020-09-29 12:57] LABS: BASOPHILS % (AUTO) 0.3 % (0-1); EOSINOPHILS # (AUTO) 0.2 X10'3 (0-0.9); EOSINOPHILS % (AUTO) 1.6 % (0-6); HEMOGLOBIN 14.3 g/dl (14.0-17.9); LYMPHOCYTES # (AUTO) 1.2 X10'3 (1.1-4.8); LYMPHOCYTES % (AUTO) 12.2 % (21-51); MEAN CORPUSCULAR HEMOGLOBIN 32.3 PG (27.0-31.0); MEAN CORPUSCULAR HGB CONC 33.3 g/dL (33.0-36.5); MEAN CORPUSCULAR VOLUME 97.2 FL (78-98); MEAN PLATELET VOLUME 6.6 FL (7.4-10.4); MONOCYTES # (AUTO) 0.7 X10'3 (0-0.9); MONOCYTES % (AUTO) 7.8 % (2-12); NEUTROPHILS # (AUTO) 7.4 X10'3 (1.8-7.7); NEUTROPHILS % (AUTO) 78.1 % (42-75); PLATELET COUNT 246 X10'3 (140-440); RED BLOOD COUNT 4.42 X10'6 (4.70-6.10); RED CELL DISTRIBUTION WIDTH 13.7 % (11.5-14.5); WHITE BLOOD COUNT 9.5 X10'3 (4.5-11.0)
--- NOTE | 2020-09-29 13:02 | NUR ---
JERSON DOES NOT REMMEBER GETTING UP AND TRYING TO PULL MONITOR OFF WALL
--- NOTE | 2020-09-29 13:03 | NUR ---
PATIETN ASKING WHEN HE IS GOING HOME.
[2020-09-29 13:10] LABS: ALANINE AMINOTRANSFERASE 30 U/L (12-78); ALBUMIN 3.8 G/DL (3.4-5.0); ALBUMIN/GLOBULIN RATIO 1.3 (1.1-1.5); ALKALINE PHOSPHATASE 65 IU/L (46-116); ANION GAP 6 (8-16); ASPARTATE AMINO TRANSFERASE 16 U/L (10-37); BILIRUBIN,TOTAL 0.3 MG/DL (0.1-1.0); BLOOD UREA NITROGEN 10 MG/DL (7-18); BUN/CREATININE RATIO 11.5 (5.4-32.0); CALCIUM 8.6 MG/DL (8.5-10.1); CARBAMAZEPINE (TEGRETOL) 7.2 UG/ML (4.0-12.0); CHLORIDE 106 MMOL/L (99-107); CREATININE 0.87 MG/DL (0.60-1.10); GLUCOSE 103 MG/DL (70-104); SODIUM 141 MMOL/L (135-145); TOTAL CARBON DIOXIDE 28.9 MMOL/L (24-32); TOTAL PROTEIN 6.8 G/DL (6.4-8.2); eGFR > 90 ML/MIN
--- NOTE | 2020-09-29 13:30 | NUR ---
Rin chavez in ED - 09/29/[address] WARD IS AWARE THAT PATIENT DID BOT RECEIVE HER SQ HEPARIN OR HER LIPITOR TODAY. NO NEW ORDERS
[2020-09-29 13:47] VITALS: BP 124/70
== END 2020-09-29 14:33 | disposition home or self-care (01) ==
LOC: ER 11:48
DX: G40.909 Epilepsy, unspecified, not intractable, without status epilepticus (principal); F12.90 Cannabis use, unspecified, uncomplicated; G89.29 Other chronic pain; Z88.8 Allergy status to other drugs, medicaments and biological substances; Z79.899 Other long term (current) drug therapy
CPT/HCPCS: 36415; 80053; 80156; 85025; 99283

== ENCOUNTER 2022-12-20 13:09 | Emergency (ER) | payer MEDICAID ==
[~2022-12-20 13:09] MED LIST changes: -MYCOL15CR TOP; +NYST15CR37 TOP
== END 2022-12-20 15:18 | disposition left against medical advice (07) ==
LOC: ER 13:10
DX: R51.9 Headache, unspecified (principal); Z53.21 Procedure and treatment not carried out due to patient leaving prior to being seen by health care provider

== ENCOUNTER 2023-01-14 15:56 | Emergency (ER) | payer MEDICAID ==
[~2023-01-14] VITALS: Ht 182.9 cm; Wt 77.6 kg
[2023-01-14 16:01] VITALS: BP 108/61
--- NOTE | 2023-01-14 16:29 | NUR ---
PT PRESENTS TO THE ER FOR MEDICATION REFILL PT STATES " I NEED MY EPILEPSY MEDICATION" PT REPORTS USUALLY SEEING DR IN [place]. PT REPORTS USING DR MIRZA IN [place] AT [facility]
[2023-01-14] MEDS ORDERED: LAMO200T10 PO (16:59)
[2023-01-14] MEDS ORDERED: CENO200T PO (16:59)
[2023-01-14] MEDS ORDERED: CLOB20TA15 PO (16:59)
[2023-01-14] MEDS ORDERED: lamoTRIgine 100mg tablet PO ONE (17:05)
== END 2023-01-14 17:13 | disposition home or self-care (01) ==
LOC: ER 15:57
DX: Z76.0 Encounter for issue of repeat prescription (principal); G40.909 Epilepsy, unspecified, not intractable, without status epilepticus; F31.9 Bipolar disorder, unspecified; J44.9 Chronic obstructive pulmonary disease, unspecified; F12.90 Cannabis use, unspecified, uncomplicated; Z88.8 Allergy status to other drugs, medicaments and biological substances
CPT/HCPCS: 99281